=== PATIENT | male | born 1950 | race Caucasian/White ===

== ENCOUNTER 2020-08-18 12:11 | Emergency (ER) | payer MEDICARE, OTHER, SELFPAY ==
--- NOTE | ~2020-08-18 | XR_ITS ---
EXAMINATION: XR CHEST CLINICAL INFORMATION: Fever COMPARISON: 07/07/2015 TECHNIQUE: 2 views of the chest were obtained. FINDINGS: No dense focal consolidation, pleural effusion or pneumothorax. Streaky opacities at the lung bases most likely represent atelectasis. Heart size is normal. No acute osseous abnormality. XR/XR chest 2V IMPRESSION: Bibasilar atelectasis. No acute pulmonary process.
--- NOTE | ~2020-08-18 | CT_ITS ---
EXAMINATION: CT SOFT TISSUE NECK WITH CONTRAST CLINICAL INFORMATION: Sore throat. Difficulty swallowing. COMPARISON: None TECHNIQUE: Following the intravenous administration of 60 mL of Omnipaque 350 intravenous contrast, helical imaging was performed in the axial plane with generation of coronal and sagittal reformatted images. This CT examination was performed using dose optimization techniques as appropriate, variously including the following: *Automated exposure control *Adjustment of mA and/or kV according to patient size (this includes techniques or standardized protocols for targeted exams where dose is matched to indication/reason for exam; i.e. extremities or head) *Use of iterative reconstruction technique DLP: 978 mGy-cm FINDINGS: There is increased soft tissue, and infiltration of fat with loss of normal fat planes seen in the right side of the oropharynx extending into the parapharyngeal space. There is asymmetric enlargement of the right submandibular gland and small amount of surrounding fluid and inflammation of the surrounding fat. There is thickening of the platysma muscles and induration of the fat in the submental region extending into the upper anterior neck. There is diffuse right-sided cervical lymphadenopathy. There is periapical lucency seen in the right inferior alveolar ridge, breakthrough of the bone and small amount of air for example axial image 178 series 3 questionable for dental infection. It is uncertain whether source of infection is dental abscess, the right submandibular gland or the right oropharynx/parapharyngeal soft tissues. A focal fluid collection/abscess is not seen. The epiglottis is normal appearing. The larynx is normal appearing. The salivary glands are otherwise normal appearing. The thyroid gland is normal. Prevertebral soft tissues are normal. Vascular structures are normal. Visualized paranasal sinuses, mastoid air cells and middle ears are clear. Visualized intracranial structures are normal. The superior mediastinum is normal. The visualized lung apices are clear. There is degenerative spondylosis of the spine. There is soft tissue ossification posterior to the C4 spinous process in the nuchal ligament likely related to old soft tissue trauma. CT/CT soft tissue neck w con IMPRESSION: Severe cellulitis involving the right side of the oropharynx, right parapharyngeal space, right submandibular gland, and right side of the mandible extending into the submental region and upper anterior neck. It is uncertain whether origin of infection is in the right side of the oropharynx, dental abscess in the right inferior alveolar ridge or right submandibular gland. Clinical inspection of the mouth to exclude dental abscess as source evidence of likely infection is recommended. No focal fluid collection/drainable abscess is seen. Diffuse right-sided lymphadenopathy likely reactive.
[2020-08-18 12:19] VITALS: BP 136/84; PULSE 104; PULSE 99; RESP 18; TEMP 38.3; O2SAT 98; O2SAT 99; BMI 32.8
--- NOTE | 2020-08-18 12:50 | ED_ITS ---
HPI - General Adult General Chief complaint: General Medical Stated complaint: tooth Ache, Sore throat Time Seen by Provider: 08/18/20 12:36 Source: patient, EMS and RN notes reviewed Mode of arrival: EMS Limitations: no limitations History of Present Illness HPI narrative: 70-year-old male with a history of hypertension, asthma, GERD, hyperlipidemia, varicose veins, osteoarthritis, chronic polyps is here today for complaining of toothache and sore throat. Denies SOB with or without exertion, CP, syncope, presyncope. Denies nausea or vomiting, denies fatigue or malaise. Febrile, tachycardic. Patient lives in [facility], denies getting a COVID vaccine. Patient reports that he declined COVID vaccine because he is afraid of side effects. Does not recall if he was exposed to anybody with COVID 19. Onset (ago): day(s) Location: mouth Radiation: non-radiation Severity: moderate Quality: burning and constant (Worse with swallowing) Related Data Previous Rx's Medication Instructions Recorded acetaminophen 650 mg 650 mg PO Q8H PRN #60 tab 07/27/20 tablet,extended release multivitamin with folic acid 400 1 tab PO DAILY #30 tab 08/15/20 mcg tablet Allergies Allergy/AdvReac Type Severity Reaction Status Date / Time haloperidol [From HALDOL] Allergy Unknown BAD Verified 04/09/20 11:37 REACTION dizziness Review of Systems Review of Systems: Constitutional : No Weight loss, No Fever, No Chills, No Night Sweats, No Fatigue, No Malaise ENT/Mouth : No Hearing loss, No Ear Pain, No Nasal Congestion, No Sinus Pain, No Hoarseness, sore throat, No Rhinorrhea, Swallowing Difficulty Eyes: No Eye Pain, No Swelling, No Redness, No Foreign Body, No Discharge, No Vision Changes Cardiovascular : No Chest Pain, No SOB, No Dyspnea on Exertion, No Orthopnea, No Edema, No Palpitations Respiratory : No Cough, No Sputum, No Wheezing, No Smoke Exposure, No Dyspnea Gastrointestinal : No Nausea, No Vomiting, No Diarrhea, No Constipation, No abdominal Pain, No Hematochezia, No Melena Genitourinary : no irregular bleeding, No Dysuria, No Urinary Frequency, No Hematuria, No Urinary Incontinence, No Urgency, No Flank Pain, No Urinary Flow Changes, No Hesitancy Musculoskeletal : No joint pain, No Myalgias, No Joint Swelling Skin : No Skin Lesions, No rash Neuro : No Weakness, No Numbness, No Paresthesias, No Loss of Consciousness, No Dizziness, No Headache Psych : No Anxiety/Panic, No Depression, No SI/HI/AH/VH, No Social Issues, Heme/Lymph: No Bruising, No Bleeding,No Lymphadenopathy Endocrine : No Polyuria, No Polydipsia, No Temperature Intolerance Yes all other systems are reviewed and are negative [facility] Past Medical History Surgical History (Updated 04/09/20 @ 11:37 by CHANEL Narayanan) History of hernia repair Family History Family History (Updated 04/09/20 @ 11:38 by CHANEL Narayanan) Father CAD (coronary artery disease) Chronic mental illness Mother No problems noted. Brother No problems noted. Social History Social History Advance Directives: No Advance Directives Information Provided: No Physical Exam Vital Signs: Vital Signs: Last Vital Signs Temp 102.5 F H 08/18/20 15:39 Pulse 102 H 08/18/20 15:39 Resp 20 08/18/20 15:39 BP 134/77 08/18/20 15:39 Pulse Ox 96 08/18/20 15:39 Body Mass Index 32.8 Const: General: cooperative, healthy appearing and comfortable Nutritional Appearance: average body habitus Orientation/consciousness: patient oriented x3 Limitations: no limitations HENMT: Head: Yes normal to inspection Ears: hearing grossly normal bilat erally General nose exam: Normal external nose present Face and sinus: Yes normal facial exam Mouth: Normal oral and palatal mucosa present Throat: Yes uvula midline, Yes abnormal tonsil (Right tonsil grossly enlarged) and Yes posterior oropharynx abnormal Eyes: General: appearance normal, both eyes and all related structures Eyelids: Yes eyelids normal Conjunctivae: conjunctivae normal Sclerae: sclerae normal Pupils: Equal, round and reactive pupils present Neck: Neck: Yes normal visual inspection, Yes full ROM, Yes trachea midline, Yes supple and Yes lymphadenopathy Thyroid: Thyroid normal Lymphatic: no lymphadenopathy noted Chest: Chest palpation & inspection: normal inspection of the chest Resp: Effort & Inspection: normal respiratory effort and able to speak in complete sentences Auscultation: clear to auscultation bilaterally Cardio: Jugular venous distension: no JVD Rate: regular rate Rhythm: regular rhythm Heart sounds: S1 normal heart sound present, S2 normal heart sound present, no gallops, no murmurs and no rubs Peripheral pulses: Peripheral pulses 2+ throughout GI: Inspection: Yes normal to inspection and No distended Palpation (GI): No hepatosplenomegaly present and No Rebound tenderness present Percussion: Yes normal to percussion Auscultation: normal bowel sounds Back/Spine/Pelvis: Cervical Spine: cervical ROM normal and No cervical muscul ar tenderness Thoracic/Lumbar Spine: thoracic and lumbar spine normal to inspection Skin: General skin exam: no rashes or lesions noted, elasticity normal and turgor normal Neuro: General: patient oriented x3 Cranial nerves: Yes Equal, round and reactive pupils present Extrem: General: Yes normal to inspection, Yes full ROM and Yes capillary refill normal Psych: Appearance: grossly normal Mental Status: mental status grossly normal Speech and movement: Normal speech and movement present Affect: normal affect Attitude: cooperative Thought process: Normal thought process present Insight: Good insight present (Psych) Course Course Course Narrative: 70-year-old male here today from [facility]. No known exposure to COVID-19, with symptoms of sore throat and toothache. On exam patient's right side adenoid large no redness or inflammation or exudate. Patient is febrile temperature 101?. Heart rate 99. Will do COVID screen, rapid strep, blood cultures, lactic acid, CBC and BMP. Will ordered Zosyn and some fluids. Reevaluation(s) Reevaluation #1: Labs reviewed, negative for leukocytosis, lactic acid 1.1. Will order CT of the neck to rule out any obstructions as patient complains of difficulty of swallowing larger pieces of food. Denies having issues with soft food or fluids. Reevaluation #2: CT of the neck back. Patient has severe cellulitis involving the right side of the oropharynx, right parapharyngeal space, right submandibular gland and right side of the mandible extending into the submental region and the upper anterior neck. Call placed to [facility]. Spoke with on-callisthenics instructor, patient will need oral surgery 1st. There is no oral surgeon vocational services specialist at [facility]. Will call [facility] for transfer. Patient denies any SOB. Continue to monitor. Patient is aware that he will need to be transferred. He is agreeable to this plan of care. Reevaluation #3: Spoke with [facility]. Patient will be accepted there for possible oral surgery. Patient will be transferred to ED under care of Dr. Escobar. Patient denies any SOB, dyspnea. Patient is NPO. Additional Reevaluation(s): Per patient request cold his [facility] and inform him of transfer to [facility] for possible oral surgery. Spoke to family member as well and inform him of transfer. Patient is stable at this time will be transferred via ambulance to [facility] Emergency Department. Patient denies SOB, dyspnea, dysphagia. Continue NPO status. Medical Decision Making Lab Data Lab results reviewed: Yes I reviewed the patient's lab results. Result diagrams: 08/18/20 13:21 08/18/20 13:20 Labs: Lab Results 08/18/20 08/18/20 08/18/20 Range/Units 12:58 13:20 13:20 WBC (4.8-10.8) X10*3/uL RBC (4.60-5.80) X10*6/uL Hgb (14.0-18.0) g/dl Hct (42-52) % MCV (80-98) fL MCH (27.0-33.0) pg MCHC (31.0-36.0) g/dl RDW (11.0-16.0) % Plt Count (160-400) X10*3/uL MPV (9.4-12.4) fL Immature Gran % (Auto) (0.0-0.4) % Neut % (Auto) (45-73) % Lymph % (Auto) (20-40) % [place] % (Auto) (2-11) % Eos % (Auto) (0-4) % Baso % (Auto) (0-2) % Lymph # (Auto) (1.2-4.9) X10*3/uL [place] # (Auto) (0.1-1.2) X10*3/uL Eos # (Auto) (0.0-0.4) X10*3/uL Baso # (Auto) (0.0-0.2) X10*3/uL Abs Immat Gran (auto) (0.00-0.03) X10*3/uL Absolute Neuts (auto) (2.0-8.3) X10*3/uL Absolute Nucleated RBC (0.0-0.012) X10*3/uL Nucleated RBC % (auto) (0.0-0.2) /100WBC Sodium 134 L (135-145) mmol/L Potassium 4.4 (3.3-5.1) mmol/L Chloride 95 L (96-108) mmol/L Carbon Dioxide 28 (22-29) mmol/L Anion Gap 15 (12-20) BUN 12 (9-16) mg/dL Creatinine 1.03 (0.5-1.4) mg/dL Estim Creat Clear Calc 84.2 Estimated GFR > 60 Random Glucose 113 (60-115) mg/dL Lactic Acid 1.1 (0.5-2.0) mmol/L Calcium 9.6 (8.4-10.2) mg/dL Urine Color Urine Appearance Urine pH (5.0-8.0) Ur Specific Victor (1.005-1.025) Urine Protein (NEG-TRACE) MG/DL Urine Glucose (UA) (NEG) MG/DL Urine Ketones (NEG) MG/DL Urine Blood (NEG) Urine Nitrite (NEG) Ur Leukocyte Esterase (NEG) Urine RBC (0) /HPF Urine WBC (0-4) /HPF Ur Squamous Epith Cells /LPF Urine Bacteria /LPF Coronavirus (PCR) NEGATIVE (Negative) Influenza Type A (PCR) NEGATIVE (Negative) Influenza Type B (PCR) NEGATIVE (Negative) RSV RNA Qual (PCR) NEGATIVE (Negative) 08/18/20 08/18/20 Range/Units 13:21 15:09 WBC 10.3 (4.8-10.8) X10*3/uL RBC 5.55 (4.60-5.80) X10*6/uL Hgb 16.0 (14.0-18.0) g/dl Hct 47.7 (42-52) % MCV 85.9 (80-98) fL MCH 28.8 (27.0-33.0) pg MCHC 33.5 (31.0-36.0) g/dl RDW 12.3 (11.0-16.0) % Plt Count 257 (160-400) X10*3/uL MPV 9.1 L (9.4-12.4) fL Immature Gran % (Auto) 0.3 (0.0-0.4) % Neut % (Auto) 75.7 H (45-73) % Lymph % (Auto) 11.3 L (20-40) % [place] % (Auto) 12.3 H (2-11) % Eos % (Auto) 0.1 (0-4) % Baso % (Auto) 0.3 (0-2) % Lymph # (Auto) 1.2 (1.2-4.9) X10*3/uL [place] # (Auto) 1.3 H (0.1-1.2) X10*3/uL Eos # (Auto) 0.0 (0.0-0.4) X10*3/uL Baso # (Auto) 0.0 (0.0-0.2) X10*3/uL Abs Immat Gran (auto) 0.03 (0.00-0.03) X10*3/uL Absolute Neuts (auto) 7.8 (2.0-8.3) X10*3/uL Absolute Nucleated RBC 0.000 (0.0-0.012) X10*3/uL Nucleated RBC % (auto) 0.0 (0.0-0.2) /100WBC Sodium (135-145) mmol/L Potassium (3.3-5.1) mmol/L Chloride (96-108) mmol/L Carbon Dioxide (22-29) mmol/L Anion Gap (12-20) BUN (9-16) mg/dL Creatinine (0.5-1.4) mg/dL Estim Creat Clear Calc Estimated GFR Random Glucose (60-115) mg/dL Lactic Acid (0.5-2.0) mmol/L Calcium (8.4-10.2) mg/dL Urine Color YELLOW Urine Appearance CLEAR Urine pH 6.0 (5.0-8.0) Ur Specific Victor <= 1.005 (1.005-1.025) Urine Protein NEG (NEG-TRACE) MG/DL Urine Glucose (UA) NEG (NEG) MG/DL Urine Ketones NEG (NEG) MG/DL Urine Blood 2+ H (NEG) Urine Nitrite NEG (NEG) Ur Leukocyte Esterase TRACE H (NEG) Urine RBC 10-14 H (0) /HPF Urine WBC 0-2 (0-4) /HPF Ur Squamous Epith Cells TRACE /LPF Urine Bacteria TRACE /LPF Coronavirus (PCR) (Negative) Influenza Type A (PCR) (Negative) Influenza Type B (PCR) (Negative) RSV RNA Qual (PCR) (Negative) Imaging Data Chest x-ray: Radiologist's impression: FINDINGS: No dense focal consolidation, pleural effusion or pneumothorax. Streaky opacities at the lung bases most likely represent atelectasis. Heart size is normal. No acute osseous abnormality. XR/XR chest 2V IMPRESSION: Bibasilar atelectasis. No acute pulmonary process. CT scan of the neck: Radiologist's impression: FINDINGS: There is increased soft tissue, and infiltration of fat with loss of normal fat planes seen in the right side of the oropharynx extending into the parapharyngeal space. There is asymmetric enlargement of the right submandibular gland and small amount of surrounding fluid and inflammation of the surrounding fat. There is thickening of the platysma muscles and induration of the fat in the submental region extending into the upper anterior neck. There is diffuse right-sided cervical lymphadenopathy. There is periapical lucency seen in the right inferior alveolar ridge, breakthrough of the bone and small amount of air for example axial image 178 series 3 questionable for dental infection. It is uncertain whether source of infection is dental abscess, the right submandibular gland or the right oropharynx/parapharyngeal soft tissues. A focal fluid collection/abscess is not seen. The epiglottis is normal appearing. The larynx is normal appearing. The salivary glands are otherwise normal appearing. The thyroid gland is normal. Prevertebral soft tissues are normal. Vascular structures are normal. Visualized paranasal sinuses, mastoid air cells and middle ears are clear. Visualized intracranial structures are normal. The superior mediastinum is normal. The visualized lung apices are clear. There is degenerative spondylosis of the spine. There is soft tissue ossification posterior to the C4 spinous process in the nuchal ligament likely related to old soft tissue trauma. CT/CT soft tissue neck w con IMPRESSION: Severe cellulitis involving the right side of the oropharynx, right parapharyngeal space, right submandibular gland, and right side of the mandible extending into the submental region and upper anterior neck. It is uncertain whether origin of infection is in the right side of the oropharynx, dental abscess in the right inferior alveolar ridge or right submandibular gland. Clinical inspection of the mouth to exclude dental abscess as source evidence of likely infection is recommended. No focal fluid collection/drainable abscess is seen. Diffuse right-sided lymphadenopathy likely reactive. Discharge Plan Discharge Patient Disposition: [facility] Transfer Details: [facility] Prescriptions: No Action acetaminophen [Tylenol 8 Hour] 650 mg tablet extended release 650 mg PO Q8H PRN (Reason: fever or pain) Qty: 60 RF: 0 multivitamin with folic acid [Tab-A-Javi] 400 mcg tablet 1 tab PO DAILY Qty: 30 RF: 3
[2020-08-18 13:26] LABS: MANUAL DIFF FLAG NO
[2020-08-18 13:28] LABS: Basophils Percent Auto 0.3 % (0-2); Eosinophils Percent Auto 0.1 % (0-4); Hematocrit 47.7 % (42-52); Imm Gran Abs Auto 0.03 X10*3/uL (0.00-0.03); Imm Gran Pct Auto 0.3 % (0.0-0.4); Lymphocytes Absolute Auto 1.2 X10*3/uL (1.2-4.9); Lymphocytes Percent Auto 11.3 % (20-40); Mean Corpuscular HGB Conc 33.5 g/dl (31.0-36.0); Mean Corpuscular Hemoglobin 28.8 pg (27.0-33.0); Mean Corpuscular Volume 85.9 fL (80-98); Mean Platelet Volume 9.1 fL (9.4-12.4); Monocytes Absolute Auto 1.3 X10*3/uL (0.1-1.2); Monocytes Percent Auto 12.3 % (2-11); Neutrophils Absolute Auto 7.8 X10*3/uL (2.0-8.3); Neutrophils Percent Auto 75.7 % (45-73); Platelet Count 257 X10*3/uL (160-400); Red Blood Count 5.55 X10*6/uL (4.60-5.80); Red Cell Distribution Width 12.3 % (11.0-16.0); White Blood Count 10.3 X10*3/uL (4.8-10.8)
[2020-08-18] MEDS: Piperacillin Sodium/Tazobactam 3.375 GM in 0.9 % Sodium Chloride 50 ML IV (13:33)
[2020-08-18] MEDS: 0.9 % Sodium Chloride 500 ML IV (13:34)
[2020-08-18 13:46] LABS: Influenza A PCR NEGATIVE (Negative); Influenza B PCR NEGATIVE (Negative); Resp Syncy Virus RNA Qual PCR NEGATIVE (Negative); SARS COV2 PCR INHOUSE NEGATIVE (Negative)
[2020-08-18 13:52] LABS: Lactic Acid 1.1 mmol/L (0.5-2.0)
[2020-08-18 13:55] LABS: Anion Gap 15 (12-20); Blood Urea Nitrogen 12 mg/dL (9-16); Calcium 9.6 mg/dL (8.4-10.2); Carbon Dioxide 28 mmol/L (22-29); Chloride 95 mmol/L (96-108); Creatinine Clr Calc Pharmacy 84.2; Estimated Glomerular Filt Rate > 60; Glucose Random 113 mg/dL (60-115); Potassium 4.4 mmol/L (3.3-5.1); Sodium 134 mmol/L (135-145)
[2020-08-18 13:59] VITALS: BP 122/77; PULSE 97; RESP 16; O2SAT 97
[2020-08-18 14:00] VITALS: BP 122/77; PULSE 97; RESP 16; O2SAT 94
[2020-08-18] MEDS: 0.9 % Sodium Chloride 1,000 ML 999 ML IV (14:42)
[2020-08-18] MEDS: iohexoL 350 MG/ML 100 ML INFUS..BTL IV (14:48)
[2020-08-18 15:17] LABS: Glucose Urine UA NEG (NEG); Leukocyte Esterase Urine TRACE (NEG); Nitrite Urine NEG (NEG); Specific Gravity - Urine <= 1.005 (1.005-1.025); UACC Culture Trigger YES; Urine Blood 2+ (NEG); Urine Ketones NEG (NEG); Urine Protein NEG (NEG-TRACE)
[2020-08-18 15:19] LABS: Appearance Urine CLEAR; Color Urine YELLOW
[2020-08-18 15:29] LABS: Bacteria Urine TRACE /LPF; Squamous Epithelial Cell Urine TRACE /LPF; WBC Urine 0-2 /HPF (0-4)
[2020-08-18 15:39] VITALS: BP 134/77; PULSE 102; RESP 20; TEMP 39.2; O2SAT 96
== END 2020-08-18 18:00 | disposition short-term general hospital (02) ==
PROVIDERS: Nurse Practitioner Family; Emergency Provider Emergency Medicine; PCP Internal Medicine
DX: L03.221 Cellulitis of neck (principal); J02.9 Acute pharyngitis, unspecified; I10 Essential (primary) hypertension; K08.89 Other specified disorders of teeth and supporting structures; J45.909 Unspecified asthma, uncomplicated; Z20.822 Contact with and (suspected) exposure to COVID-19; Z79.899 Other long term (current) drug therapy
CPT/HCPCS: 0241U; 36415; 70491; 71046; 80048; 81001; 81003; 83605; 85025; 87040; 87071; 87086; 87880; 96360; 96361; 99284; J2543; Q9967

== ENCOUNTER 2021-06-06 10:25 | Outpatient (REF) | payer MEDICARE, OTHER, SELFPAY ==
[2021-06-06 12:10] LABS: Appearance Urine CLEAR; Color Urine YELLOW; Glucose Urine UA NEG (NEG); Leukocyte Esterase Urine 2+ (NEG); Nitrite Urine NEG (NEG); Urine Blood NEG (NEG); Urine Ketones NEG (NEG); Urine Protein NEG (NEG-TRACE)
[2021-06-06 12:15] LABS: Alanine Aminotransferase 16 U/L (0-40); Alkaline Phosphatase 55 U/L (39-117); Anion Gap 12 (12-20); Aspartate Amino Transferase 15 U/L (5-37); Bilirubin Direct 0.3 mg/dL (0.0-0.5); Bilirubin Total 0.8 mg/dL (0.0-1.0); Blood Urea Nitrogen 22 mg/dL (9-16); Calcium 9.6 mg/dL (8.4-10.2); Carbon Dioxide 26 mmol/L (22-29); Chloride 106 mmol/L (96-108); Cholesterol 196 mg/dL; Estimated Glomerular Filt Rate > 60; Glucose Random 95 mg/dL (60-115); HDL Cholesterol 42 mg/dL; LDL Cholesterol Calculated 126 mg/dl; Potassium 4.4 mmol/L (3.3-5.1); Sodium 140 mmol/L (135-145); Total Protein 7.1 g/dL (6.5-8.0); Triglycerides 140 mg/dL
[2021-06-06 13:04] LABS: Bacteria Urine 1+ /LPF; RBC Urine 0-2 /HPF (0); Squamous Epithelial Cell Urine 1+ /LPF
[2021-06-11 11:51] LABS: Vitamin D 25-OH, D2 <4 ng/mL; Vitamin D 25-OH, D3 20 ng/mL; Vitamin D 25-OH, Total 20 ng/mL (30-100)
== END 2021-06-06 10:26 | disposition home or self-care (01) ==
LOC: HO.LAB 10:25
PROVIDERS: Visit Provider Internal Medicine
DX: F20.9 Schizophrenia, unspecified (principal); I10 Essential (primary) hypertension
CPT/HCPCS: 36415; 80048; 80061; 80076; 81001; 81003; 82306; 84443

== ENCOUNTER 2021-11-03 19:31 | Emergency (ER) | payer MEDICARE, OTHER, SELFPAY ==
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
[2021-11-03 20:08] VITALS: BP 149/83; PULSE 80; RESP 18; TEMP 36.2; O2SAT 99; BMI 28.9
[2021-11-03 20:15] VITALS: BP 190/100; O2SAT 97
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
--- NOTE | 2021-11-03 20:59 | PC.NURSE ---
patient a&x3, denies pain/discomfort, pt went to ct scan, awaiting results, will continue to monitor.
== END 2021-11-03 21:52 | disposition home or self-care (01) ==
PROVIDERS: Emergency Provider Internal Medicine
DX: S09.90XA Unspecified injury of head, initial encounter (principal); M54.2 Cervicalgia; G44.309 Post-traumatic headache, unspecified, not intractable; Y04.8XXA Assault by other bodily force, initial encounter; Y93.9 Activity, unspecified; Y92.009 Unspecified place in unspecified non-institutional (private) residence as the place of occurrence of the external cause; Y99.9 Unspecified external cause status; Z87.891 Personal history of nicotine dependence
CPT/HCPCS: 70450; 72125; 99284

== ENCOUNTER 2022-09-04 10:53 | Outpatient (REF) | payer MEDICARE, OTHER, SELFPAY ==
[2022-09-04 11:15] LABS: MANUAL DIFF FLAG NO
[2022-09-04 12:17] LABS: Appearance Urine Clear; Color Urine Yellow; Glucose Urine UA Negative (Negative); Leukocyte Esterase Urine Large (3+) (Negative); Nitrite Urine Negative (Negative); PH 5.5 (5.0-9.0); UMIC TRIGGER UA YES; Urine Blood Negative (Negative); Urine Ketones Negative (Negative); Urine Protein Negative (Neg-Trace)
[2022-09-04 12:26] LABS: Basophils Absolute Auto 0.1 X10*3/uL (0.0-0.2); Basophils Percent Auto 1.1 % (0-2); Eosinophils Absolute Auto 0.1 X10*3/uL (0.0-0.4); Eosinophils Percent Auto 1.5 % (0-4); Hematocrit 44.3 % (42.0-52.0); Hemoglobin 14.5 g/dl (14.0-18.0); Lymphocytes Absolute Auto 1.7 X10*3/uL (1.2-4.9); Lymphocytes Percent Auto 31.5 % (20-40); Mean Corpuscular HGB Conc 32.7 g/dl (31.0-36.0); Mean Corpuscular Hemoglobin 28.7 pg (27.0-33.0); Mean Corpuscular Volume 87.5 fL (80.0-98.0); Mean Platelet Volume 9.8 fL (9.4-12.4); Monocytes Absolute Auto 0.5 X10*3/uL (0.1-1.2); Monocytes Percent Auto 9.5 % (2-11); Neutrophils Absolute Auto 3.1 x10*3/uL (2.0-8.3); Neutrophils Percent Auto 56.4 % (45-73); Platelet Count 263 X10*3/uL (160-400); Red Blood Count 5.06 X10*6/uL (4.60-5.80); Red Cell Distribution Width 13.5 % (11.0-16.0); White Blood Count 5.5 X10*3/uL (4.8-10.8)
[2022-09-04 12:30] LABS: Bacteria Urine None Seen (None Seen); Hyaline Casts Urine 0-2 /LPF (0-2); RBC Urine 0-2 /HPF (0-2); Squamous Epithelial Cell Urine 0-2 /HPF (0-2); WBC Urine 21-50 /HPF (0-5)
[2022-09-04 12:31] LABS: Estimated Average Glucose 94 mg/dL; Hemoglobin A1c % 4.9 %
[2022-09-04 12:44] LABS: Alanine Aminotransferase 14 U/L (0-40); Albumin Level 4.1 g/dL (3.5-5.0); Alkaline Phosphatase 48 U/L (39-117); Anion Gap 13 (12-20); Aspartate Amino Transferase 13 U/L (5-37); Bilirubin Total 1.7 mg/dL (0.0-1.0); Blood Urea Nitrogen 10 mg/dL (9-16); Calcium 9.9 mg/dL (8.4-10.2); Carbon Dioxide 28 mmol/L (22-29); Chloride 107 mmol/L (96-108); Cholesterol 191 mg/dL; Estimated Glomerular Filt Rate > 60; Glucose Fasting 85 mg/dL (60-99); Glucose Random 85 mg/dL (60-115); HDL Cholesterol 58 mg/dL; LDL Cholesterol Calculated 121 mg/dl; Sodium 143 mmol/L (135-145); Triglycerides 61 mg/dL
[2022-09-04 12:59] LABS: Alanine Aminotransferase 14 U/L (0-40); Alkaline Phosphatase 47 U/L (39-117); Anion Gap 14 (12-20); Aspartate Amino Transferase 13 U/L (5-37); Bilirubin Direct 0.4 mg/dL (0.0-0.5); Bilirubin Total 1.7 mg/dL (0.0-1.0); Blood Urea Nitrogen 10 mg/dL (9-16); Calcium 9.8 mg/dL (8.4-10.2); Carbon Dioxide 28 mmol/L (22-29); Chloride 107 mmol/L (96-108); Cholesterol 192 mg/dL; Estimated Glomerular Filt Rate > 60; Glucose Random 85 mg/dL (60-115); HDL Cholesterol 57 mg/dL; LDL Cholesterol Calculated 123 mg/dl; Potassium 4.9 mmol/L (3.3-5.1); Sodium 144 mmol/L (135-145); Total Protein 6.9 g/dL (6.5-8.0); Triglycerides 60 mg/dL
[2022-09-04 13:15] LABS: Thyroid Stimulating Hormone 1.42 uIU/mL (0.32-4.0)
== END 2022-09-04 10:54 | disposition home or self-care (01) ==
LOC: HO.LAB 10:53
PROVIDERS: PCP Internal Medicine; Referring Provider Nurse Practitioner Psychiatric/Mental Health; Visit Provider Internal Medicine
DX: F20.9 Schizophrenia, unspecified (principal); I10 Essential (primary) hypertension; Z51.81 Encounter for therapeutic drug level monitoring; Z79.899 Other long term (current) drug therapy
CPT/HCPCS: 36415; 80048; 80053; 80061; 80076; 81001; 81003; 82947; 83036; 84443; 85025

== ENCOUNTER 2023-02-11 10:54 | Outpatient (AMB) | payer MEDICARE, SELFPAY ==
[2023-02-11 10:55] VITALS: BP 106/78; PULSE 76; O2SAT 98; BMI 25.7
--- NOTE | 2023-02-11 10:55 | AM.OFFVISMDC ---
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 Patient of Dr. Hurst. Today we discussed patient's need for colon cancer screening, pneumonia vaccine, tetanus vaccine, and flu vaccine, patient has declined these. Also discussed patient's need for prostate cancer screening. Hollis of care was reviewed with the patient and he was provided with a screening schedule. End of life planning was discussed with the patient and he was provided with healthcare proxy and MOLST forms. [facility] Medical History Right shoulder strain Essential hypertension Schizophrenia, unspecified Surgical History History of colonoscopy History of tooth extraction History of hernia repair Family History Father CAD (coronary artery disease) Chronic mental illness Mental health disorder Mother No problems noted. Brother No problems noted. Social History Housing: House (usp) Alcohol intake: never Patient Tobacco Use Status: Former Tobacco user Quit Date: 35 years ago e-Cigarette/Vaping Use: Never Used Second Hand Smoke Exposure: No service: No Current occupational status: disabled Cognitive needs: No Hearing needs: No Vision needs: Yes (Glasses) Questionnaire Medicare Wellness Checkup [age] What gender do you identify with?: male During the past 4 weeks, how much have you been bothered by emotional problems such as feeling anxious, depressed, irritable, sad or downhearted, and blue?: quite a bit During the past 4 weeks, has your physical & emotional health limited your social activities with family, friends, neighbors, or groups?: moderately During the past 4 weeks, how much bodily pain have you generally had?: moderate pain During the past 4 weeks, was someone available to help you if you needed & wanted help?: yes, as much as I wanted During the past 4 weeks, what was the hardest physical activity you could do for at least 2 minutes?: light Can you get to places out of walking distance without help? (For eg., can you travel alone on buses, taxis or drive your car?): No Can you go shopping for groceries or clothes without someone's help?: Yes Can you prepare your own meals?: Yes Can you do your housework without help?: No Because of any health problems, do you need the help of another person with your personal care needs such as eating, bathing, dressing or getting around the house?: No Can you handle your own money without help?: No During the past 4 weeks, how would you rate your health in general?: very good During the past 4 weeks how have things been going for you?: good & bad parts about equal Are you having difficulties driving your car?: no Do you always fasten your seat belt when you are in a car?: yes, usually During past 4 weeks, have you been bothered by the following: never: Sexual problems?, Teeth or denture problems? and Problems using the telephone?, seldom: Trouble eating well? and often: Falling or dizzy when standing up and Tiredness or fatigue? Have you fallen 2 or more times in the past year?: No Are you afraid of falling?: Yes Are you a smoker?: no During the past 4 weeks, how many drinks of wine, beer, or other alcoholic beverages did you have?: no alcohol at all Do you exercise for about 20 minutes 3 or more times a week?: yes, most of the time Have you been given information to help with the following?: yes: Hazards in your house that might hurt you? and yes: Keeping track of your medications? How often do you have trouble taking medicines the way you have been told to take them?: I always take medicine as prescribed How confident are you that you can control & manage most of your health problems?: somewhat confident What is your race?: White Mini Mental State Exam (MMSE) Orientation What is the (year) (season) (date) (day) (month)?: year, season, date, day and month Score Score: 5 Activity of Daily Living Bathing - sponge bath, tub bath or shower: receives no assistance (gets in/out by self, if usual bathing means Dressing - getting clothes from closets & drawers, including inner/outer garments & fasteners.: gets clothes & gets completely dressed without help Toileting - going to the 'toilet room' for urine/bowel elimination & cleaning self/arranging clothes: goes to toilet room, cleans self, arranges clothes without help Transfer: moves in & out of bed and chair without help (may use support object) Continence: controls urination/bowel movements completely by self Feeding: feeds self without help Total Score: 0 Information obtained from: patient Using telephone: independent Traveling: dependent Shopping: needs assistance Preparing meals: needs assistance Housework: dependent Taking medicine: dependent Managing money: independent PHQ-9 Over the last 2 weeks, how often have you been bothered by any of the following problems? 1. Little interest or pleasure in doing things: several days 2. Feeling down, depressed, or hopeless: several days 3. Trouble falling or staying asleep, or sleeping too much: several days 4. Feeling tired or having little energy: several days 5. Poor appetite or overeating: not at all 6. Feeling bad about yourself - or that you are a failure or have let yourself or your family down: several days 7. Trouble concentrating on things, such as reading the newspaper or watching television: several days 8. Moving or speaking so slowly that other people could have noticed. Or the opposite - being so fidgety or restless that you have been moving around a lot more than usual: not at all 9. Thoughts that you would be better off or of hurting yourself in some way: not at all Total score: 6 Depression Screening Interpretation: Negative Depression Screening Done: Yes 49627 - PHQ-9 Billing: Yes Source: Developed by Drs. Gómez Molina, Sarai Sutton, Edwin Fermin and colleagues, with an educational sadie from [employer]. Physical Exam Vital Signs: Last Vital Signs Pulse 76 02/11/23 10:55 BP 106/78 02/11/23 10:55 Pulse Ox 98 02/11/23 10:55 Oxygen Delivery Method Room Air 02/11/23 10:55 BMI result Body Mass Index 25.7 Const General: cooperative and no acute distress Orientation/consciousness: patient oriented x3 HEENT Other: Whisper test: pass Neuro Other: Balance: Normal Get up and walk: able to Romberg: negative Tandem gait: unable to General: patient oriented x3 Assessment & Plan Assessment & Plan (1) Adult general medical exam: Code(s): Z00.00 - Encounter for general adult medical examination without abnormal findings (2) Screening for prostate cancer: Code(s): Z12.5 - Encounter for screening for malignant neoplasm of prostate (3) Essential hypertension: Code(s): I10 - Essential (primary) hypertension Plan: Continue current treatment. Reinforced low-sodium diet and exercise as tolerated. (4) Schizophrenia, unspecified: Code(s): F20.9 - Schizophrenia, unspecified Plan: Continue to follow-up with psychiatrist as scheduled at [facility]. (5) Colonoscopy refused: Code(s): Z53.20 - Procedure and treatment not carried out because of patient's decision for unspecified reasons Orders: Orders Prostate Specific Antigen Today Z12.5 - Encounter for screening for malignant neoplasm of prostate Quality Reporting (2019) Depression/Bipolar (159/160/161/177) PHQ-9: Total score: 6 Coding Level of Care Code Medicare Subsequent (G0439) Diagnoses Adult general medical exam Z00.00 Screening for prostate cancer Z12.5 Essential hypertension I10 Schizophrenia, unspecified F20.9 Colonoscopy refused Z53.20 CPT Codes Advance Care Planning - Time spent: 1-15 minutes, not on file ([id number]) Advance Care Planning Date of discussion: 02/11/23 Who was present: pt and psych arnp Forms completed: None Time spent: 1-15 minutes, not on file Actual minutes spent: 3 Did not discuss due to Cultural/Spiritual beliefs: No
== END 2023-02-11 11:27 | disposition home or self-care (01) ==
PROVIDERS: Visit Provider Nurse Practitioner Family
DX: Z00.00 Encounter for general adult medical examination without abnormal findings (principal); Z12.5 Encounter for screening for malignant neoplasm of prostate; I10 Essential (primary) hypertension; F20.9 Schizophrenia, unspecified; Z53.20 Procedure and treatment not carried out because of patient's decision for unspecified reasons
CPT/HCPCS: 1124F; G0439

== ENCOUNTER 2023-08-13 09:46 | Outpatient (AMB) | payer MEDICARE, MEDICAID, SELFPAY ==
--- NOTE | 2023-08-13 10:15 | A.OFFPC_ITS ---
Vital Signs 08/13/23 10:38 Height 5 ft 11 in Weight 182 lb BMI 25.4 BP 110/70 Blood Pressure Location Lt brachial Position Sitting Pulse 60 Pulse Source Pulse Oximeter Pulse Oximetry (%) 97 Oxygen Delivery Method Room Air Intake Visit Reasons: HTN Intake Note: Patient is here to follow up on HTN and medication refill. 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 Required: No Stained Glass Window Designer: Present Accompanied by: STAFF Allergies haloperidol [From HALDOL] Allergy (Unknown, Verified 08/13/23 11:10) BAD REACTION dizziness Medication List - Last Reconciled 08/13/23 by Jameson Hurst MD acetaminophen ER (Tylenol 8 Hour) 650 mg PO Q8H PRN amlodipine 5 mg PO DAILY benztropine 2 mg PO BID cholecalciferol (vitamin D3) 25 mcg PO DAILY fluphenazine decanoate mg IM lorazepam 0.5 mg PO BID PRN multivitamin with folic acid 400 mcg (Tab-A-Javi) 1 tab PO DAILY propranolol 20 mg PO TID Tobacco use date assessed: 08/13/23 Fall risk assessment: 1 Fall in past year Last assessed Fall Risk: 08/13/23 Dental Screening Dental Screen Date: 08/13/23 Did you have a dental visit in the last 12 months?: No Did you have a dental problem in the last 6 months where you did not have access to dental care?: No Was dental information given to patient?: No HPI HTN HPI Details 73-year-old male presents to the office to discuss his medical condition. He is accompanied by an attendant from his assisted. Patient gives history of schizophrenia and hypertension. He is at baseline state of health. Able to function at his level. He needs assistance with medications. Lives in a assisted. [facility] Medical History Right shoulder strain Essential hypertension Schizophrenia, unspecified Surgical History History of colonoscopy History of tooth extraction History of hernia repair Family History Father CAD (coronary artery disease) Chronic mental illness Mental health disorder Mother No problems noted. Brother No problems noted. Social History Alcohol intake: never Patient Tobacco Use Status: Former Tobacco user Quit Date: 35 years ago e-Cigarette/Vaping Use: Never Used Second Hand Smoke Exposure: No service: No Current occupational status: disabled Cognitive needs: No Hearing needs: No Vision needs: Yes (Glasses) Questionnaire PHQ-9 Over the last 2 weeks, how often have you been bothered by any of the following problems? 1. Little interest or pleasure in doing things: not at all 2. Feeling down, depressed, or hopeless: not at all 3. Trouble falling or staying asleep, or sleeping too much: not at all 4. Feeling tired or having little energy: not at all 5. Poor appetite or overeating: not at all 6. Feeling bad about yourself - or that you are a failure or have let yourself or your family down: not at all 7. Trouble concentrating on things, such as reading the newspaper or watching television: not at all 8. Moving or speaking so slowly that other people could have noticed. Or the opposite - being so fidgety or restless that you have been moving around a lot more than usual: not at all 9. Thoughts that you would be better off or of hurting yourself in some way: not at all Total score: 0 Depression Screening Interpretation: Negative Depression Screening Done: Yes Source: Developed by Drs. Gómez Molina, Sarai Sutton, Edwin Fermin and colleagues, with an educational sadie from [employer]. Thrive Questionnaire Date Thrive assessed: 08/13/23 I am a: Patient What is your living situation today?: I have a steady place to live Within the past 12 months, did the food you bought not last and you didn't have the money to get more?: Never true Within the past 12 months, did you worry whether your food would run out before you got money to buy more?: Never true Do you have trouble paying for medicines?: No Do you have trouble getting transportation to medical appointments?: No Do you have trouble paying your heating and electricity bill?: No Do you have trouble taking care of your child, family member or friend?: No Do you have trouble with day-to-day activities such as bathing, preparing meals, shopping, managing finances, etc.?: No Are you currently unemployed and looking for a job?: No Are you interested in more education?: No Currently or been in a relationship where the following occur: no concerns reported THRIVE Score: 0 AUDIT C Alcohol Use Questionnaire (AUDIT-C) 1. How often do you have a drink containing alcohol?: Never Total Score: 0 INOCENCIO-7 AMB Questionnaire INOCENCIO-7 Date INOCENCIO - 7 assessed: 08/13/23 Feeling nervous, anxious, or on edge: 1 = Several days Not being able to stop or control worryin = Not at all Worrying too much about different things: 0 = Not at all Trouble relaxin = Several days Being so restless that it is hard to sit still: 3 = Nearly every day Becoming easily annoyed or irritable: 1 = Several days Feeling afraid as if something awful might happen: 1 = Several days Total INOCENCIO-7 score (0-4 normal; 5-9 mild; 10-14 moderate; 15-21 severe): 7 Source: Developed by Drs. Gómez Molina, Sarai Sutton, Edwin Fermin and colleagues, with an educational sadie from [employer]. Physical exam (Primary Care) Vital Signs: Last Vital Signs Pulse 60 08/13/23 10:38 BP 110/70 08/13/23 10:38 Pulse Ox 97 08/13/23 10:38 Oxygen Delivery Method Room Air 08/13/23 10:38 BMI result Body Mass Index 25.4 Tobacco/Smoking Status: Tobacco use Status Tobacco use date assessed 08/13/23 08/13/23 10:46 Patient Tobacco Use Status Former Tobacco user 08/13/23 10:46 e-Cigarette/Vaping Use Never Used 08/13/23 10:17 PHQ-9: PHQ-9 Score PHQ-9: Total score 0 08/13/23 10:46 Depression Screening Interpretation: Negative Thrive Assessment: Date of Thrive Assessment Date Thrive assessed 08/13/23 08/13/23 10:46 Currently or been in a relationship where the following occur: no concerns r eported Const General: cooperative and healthy appearing Nutritional Appearance: well nourished Orientation/consciousness: patient oriented x3 Limitations: no limitations HENMT Head: Yes normal to inspection Eyes General: appearance normal, both eyes and all related structures Neck Neck: Yes normal visual inspection Chest Chest palpation & inspection: normal palpation of entire chest wall Resp Effort & Inspection: normal respiratory effort Neuro General: patient oriented x3 Assessment and Plan Assessment & Plan (1) Schizophrenia, unspecified: Code(s): F20.9 - Schizophrenia, unspecified Plan: Condition is stable. Continue current meds. (2) Essential hypertension: Code(s): I10 - Essential (primary) hypertension Plan: Blood pressure is in range. Blood work has ordered. Orders: Orders Basic Metabolic Panel Today F20.9 - Schizophrenia, unspecified, I10 - Essential (primary) hypertension Complete Blood Count no Diff Today F20.9 - Schizophrenia, unspecified, I10 - Essential (primary) hypertension Liver Panel Today F20.9 - Schizophrenia, unspecified, I10 - Essential (primary) hypertension Lipid Panel Today F20.9 - Schizophrenia, unspecified, I10 - Essential (primary) hypertension Thyroid Stimulating Hormone Today F20.9 - Schizophrenia, unspecified, I10 - Essential (primary) hypertension Medications: Refilled cholecalciferol (vitamin D3) 25 mcg PO DAILY 90 caps 1RF propranolol 20 mg PO TID 270 tabs 0RF amlodipine 5 mg PO DAILY 90 tabs 1RF acetaminophen ER (Tylenol 8 Hour) 650 mg PO Q8H PRN 60 tabs 0RF fever or pain Coding Level of Care Code Est Pt Level 3 (09203) Diagnoses Schizophrenia, unspecified F20.9 Essential hypertension I10
[2023-08-13 10:38] VITALS: BP 110/70; PULSE 60; O2SAT 97; BMI 25.4
== END 2023-08-13 11:15 | disposition home or self-care (01) ==
PROVIDERS: PCP Internal Medicine; Visit Provider Internal Medicine
DX: F20.9 Schizophrenia, unspecified (principal); I10 Essential (primary) hypertension
CPT/HCPCS: 99213

== ENCOUNTER 2023-08-13 11:24 | Outpatient (REF) | payer MEDICARE, OTHER, SELFPAY ==
[2023-08-13 12:36] LABS: Hematocrit 47.4 % (42.0-52.0); Hemoglobin 15.5 g/dl (14.0-18.0); Mean Corpuscular HGB Conc 32.7 g/dl (31.0-36.0); Mean Corpuscular Hemoglobin 28.9 pg (27.0-33.0); Mean Corpuscular Volume 88.3 fL (80.0-98.0); Mean Platelet Volume 9.9 fL (9.4-12.4); Platelet Count 247 X10*3/uL (160-400); Red Blood Count 5.37 X10*6/uL (4.60-5.80); White Blood Count 6.2 X10*3/uL (4.8-10.8)
[2023-08-13 14:11] LABS: Alanine Aminotransferase 16 U/L (0-40); Alkaline Phosphatase 50 U/L (39-117); Anion Gap 6 (12-20); Aspartate Amino Transferase 12 U/L (5-37); Bilirubin Direct 0.2 mg/dL (0.0-0.5); Bilirubin Total 0.8 mg/dL (0.0-1.0); Blood Urea Nitrogen 18 mg/dL (9-16); Calcium 9.6 mg/dL (8.4-10.2); Carbon Dioxide 32 mmol/L (22-29); Chloride 107 mmol/L (96-108); Cholesterol 206 mg/dL (<200); Estimated Glomerular Filt Rate > 60; Glucose Random 74 mg/dL (60-115); HDL Cholesterol 60 mg/dL (>40); LDL Cholesterol Calculated 130 mg/dL (<100); Potassium 4.4 mmol/L (3.3-5.1); Sodium 141 mmol/L (135-145); Total Protein 7.4 g/dL (6.5-8.0); Triglycerides 81 mg/dL (<150)
[2023-08-13 14:28] LABS: Thyroid Stimulating Hormone 2.03 uIU/mL (0.32-4.0)
== END 2023-08-13 11:25 | disposition home or self-care (01) ==
LOC: HO.LAB 11:24
PROVIDERS: PCP Internal Medicine; Visit Provider Internal Medicine
DX: F20.9 Schizophrenia, unspecified (principal); I10 Essential (primary) hypertension
CPT/HCPCS: 36415; 80048; 80061; 80076; 84443; 85027

== ENCOUNTER 2024-02-11 09:01 | Outpatient (AMB) | payer MEDICARE, MEDICAID, SELFPAY ==
--- NOTE | 2024-02-11 09:05 | AM.OFFVISMDC ---
Intake Vital Signs 02/11/24 09:08 Height 5 ft 11 in Weight 192 lb BMI 26.8 BP 110/70 Blood Pressure Location Lt brachial Position Sitting Pulse 75 Pulse Source Pulse Oximeter Pulse Oximetry (%) 95 Oxygen Delivery Method Room Air Intake Visit Reasons: YANI [id number] Intake Note: Patient is here for an Annual Wellness Visit. Pt decline flu shot today. Artistic Associate Required: No Slaughterer Religious Ritual: Slaughterer Religious Ritual Present Accompanied by: staff Allergies haloperidol [From HALDOL] Allergy (Unknown, Verified 02/11/24 09:08) BAD REACTION dizziness Do you need a note to return to daycare/school/sports/work: No HPI V [id number] HPI Details 73-year-old male presents to the office requesting a subsequent wellness visit. Patient is declining a screening colonoscopy or Cologuard. He is also declining the flu vaccine. He understands the risks. [facility] Medical History Right shoulder strain Essential hypertension Schizophrenia, unspecified Surgical History History of colonoscopy History of tooth extraction History of hernia repair Family History Father CAD (coronary artery disease) Chronic mental illness Mental health disorder Mother No problems noted. Brother No problems noted. Social History Housing: House (senior living) Alcohol intake: never Patient Tobacco Use Status: Former Tobacco user e-Cigarette/Vaping Use: Never Used Second Hand Smoke Exposure: No service: No Current occupational status: disabled Cognitive needs: No Hearing needs: No Vision needs: Yes (Glasses) Questionnaire Medicare Wellness Checkup [age] What gender do you identify with?: male During the past 4 weeks, how much have you been bothered by emotional problems such as feeling anxious, depressed, irritable, sad or downhearted, and blue?: moderately During the past 4 weeks, has your physical & emotional health limited your social activities with family, friends, neighbors, or groups?: moderately During the past 4 weeks, how much bodily pain have you generally had?: moderate pain During the past 4 weeks, was someone available to help you if you needed & wanted help?: yes, some During the past 4 weeks, what was the hardest physical activity you could do for at least 2 minutes?: very light Can you get to places out of walking distance without help? (For eg., can you travel alone on buses, taxis or drive your car?): Yes Can you go shopping for groceries or clothes without someone's help?: Yes Can you prepare your own meals?: Yes Can you do your housework without help?: Yes Because of any health problems, do you need the help of another person with your personal care needs such as eating, bathing, dressing or getting around the house?: Yes Can you handle your own money without help?: Yes During the past 4 weeks, how would you rate your health in general?: good During the past 4 weeks how have things been going for you?: good & bad parts about equal Are you having difficulties driving your car?: not applicable, I don't use a car Do you always fasten your seat belt when you are in a car?: yes, usually During past 4 weeks, have you been bothered by the following: never: Sexual problems?, Trouble eating well?, Teeth or denture problems? and Problems using the telephone?, seldom: Tiredness or fatigue? and sometimes: Falling or dizzy when standing up Have you fallen 2 or more times in the past year?: No Are you afraid of falling?: No Are you a smoker?: no During the past 4 weeks, how many drinks of wine, beer, or other alcoholic beverages did you have?: no alcohol at all Do you exercise for about 20 minutes 3 or more times a week?: yes, most of the time Have you been given information to help with the following?: yes: Keeping track of your medications? and no: Hazards in your house that might hurt you? How often do you have trouble taking medicines the way you have been told to take them?: I always take medicine as prescribed How confident are you that you can control & manage most of your health problems?: somewhat confident What is your race?: White Mini Mental State Exam (MMSE) Orientation What is the (year) (season) (date) (day) (month)?: year, season and date Score Score: 3 Activity of Daily Living Bathing - sponge bath, tub bath or shower: receives no assistance (gets in/out by self, if usual bathing means Dressing - getting clothes from closets & drawers, including inner/outer garments & fasteners.: gets clothes & gets completely dressed without help Toileting - going to the 'toilet room' for urine/bowel elimination & cleaning self/arranging clothes: goes to toilet room, cleans self, arranges clothes without help Transfer: moves in & out of bed and chair without help (may use support object) Continence: controls urination/bowel movements completely by self Feeding: feeds self without help Total Score: 0 Information obtained from: informant Using telephone: independent Traveling: dependent Shopping: dependent Preparing meals: dependent Housework: dependent Taking medicine: dependent Managing money: independent PHQ-9 Over the last 2 weeks, how often have you been bothered by any of the following problems? 1. Little interest or pleasure in doing things: more than half the days 2. Feeling down, depressed, or hopeless: more than half the days 3. Trouble falling or staying asleep, or sleeping too much: more than half the days 4. Feeling tired or having little energy: more than half the days 5. Poor appetite or overeating: more than half the days 6. Feeling bad about yourself - or that you are a failure or have let yourself or your family down: more than half the days 7. Trouble concentrating on things, such as reading the newspaper or watching television: more than half the days 8. Moving or speaking so slowly that other people could have noticed. Or the opposite - being so fidgety or restless that you have been moving around a lot more than usual: more than half the days 9. Thoughts that you would be better off or of hurting yourself in some way: more than half the days Total score: 18 Depression Screening Interpretation: Positive Depression Screening Done: Yes Source: Developed by Drs. Gómez Molina, Sarai Sutton, Edwin Fermin and colleagues, with an educational sadie from [employer]. Thrive Questionnaire Date Thrive assessed: 08/13/23 INOCENCIO-7 AMB Questionnaire INOCENCIO-7 Date INOCENCIO - 7 assessed: 08/13/23 Source: Developed by Drs. Gómez Molina, Sarai Sutton, Edwin Fermin and colleagues, with an educational sadie from [employer]. Physical Exam Vital Signs: Last Vital Signs Pulse 75 02/11/24 09:08 BP 110/70 02/11/24 09:08 Pulse Ox 95 02/11/24 09:08 Oxygen Delivery Method Room Air 02/11/24 09:08 BMI result Body Mass Index 26.8 Balance: Negative Romberg: Negative Tandem Walk: Able to Walk and Turn: Able to Rise from sit to stand: Able to Hearing Whisper test: Pass Screening scheduled provided to the patient. [place] of care documented in the record. Assessment & Plan Assessment & Plan (1) Schizophrenia, unspecified: Code(s): F20.9 - Schizophrenia, unspecified Plan: Condition is stable. Continue current medications. (2) Essential hypertension: Code(s): I10 - Essential (primary) hypertension Plan: Condition is stable. Continue current medications. (3) Encounter for annual wellness exam in Medicare patient: Code(s): Z00.00 - Encounter for general adult medical examination without abnormal findings Plan: Patient is declining screening colonoscopy or the flu vaccine. Orders: Orders Complete Blood Count no Diff Today F20.9 - Schizophrenia, unspecified, I10 - Essential (primary) hypertension Basic Metabolic Panel Today F20.9 - Schizophrenia, unspecified, I10 - Essential (primary) hypertension Lipid Panel Today F20.9 - Schizophrenia, unspecified, I10 - Essential (primary) hypertension Liver Panel Today F20.9 - Schizophrenia, unspecified, I10 - Essential (primary) hypertension Hemoglobin A1c Today F20.9 - Schizophrenia, unspecified, I10 - Essential (primary) hypertension Thyroid Stimulating Hormone Today F20.9 - Schizophrenia, unspecified, I10 - Essential (primary) hypertension Medications: Refilled acetaminophen ER (Tylenol 8 Hour) 650 mg PO Q8H PRN 60 tabs 0RF fever or pain atorvastatin 10 mg PO BEDTIME 90 tabs 1RF propranolol 20 mg PO TID 270 tabs 0RF Quality Reporting (2019) Depression/Bipolar (159/160/161/177) PHQ-9: Total score: 18 Coding Level of Care Code Medicare Subsequent (G0439) Diagnoses Schizophrenia, unspecified F20.9 Essential hypertension I10 Encounter for annual wellness exam in Medicare patient Z00.00
[2024-02-11 09:08] VITALS: BP 110/70; PULSE 75; O2SAT 95; BMI 26.8
== END 2024-02-11 09:34 | disposition home or self-care (01) ==
PROVIDERS: PCP Internal Medicine; Visit Provider Internal Medicine
DX: Z00.00 Encounter for general adult medical examination without abnormal findings (principal); F20.9 Schizophrenia, unspecified; I10 Essential (primary) hypertension

== ENCOUNTER → 2024-02-11 09:01 | Outpatient (BNVA) | payer MEDICARE, OTHER, SELFPAY | PROVIDERS: PCP Internal Medicine; Visit Provider Internal Medicine ==

== ENCOUNTER → 2024-05-19 10:29 | Outpatient (BNVA) | payer MEDICARE, SELFPAY | PROVIDERS: PCP Internal Medicine; Visit Provider Internal Medicine | DX: R21 Rash and other nonspecific skin eruption (principal) | CPT/HCPCS: 96127 ==

== ENCOUNTER 2024-07-20 08:52 | Outpatient (REF) | payer MEDICARE, MEDICAID, SELFPAY ==
[2024-07-20 09:04] LABS: MANUAL DIFF FLAG NO
--- OUTSIDE RECORDS SUMMARY | 2024-07-20 09:34 | XMS_ITS | Clinical Summary ---
Author Organization [facility] Address [address] [place] [address] Care Team Providers Care Crop Duster Helper Name Role Phone Pcp, No Primary Care Provider Unavailabl e Allergies Active Allergy Reactions Criticality Noted Date Comments Haloperidol Unknown/Patient and Family Unable to Define Medium 08/18/2020 Medications Medication Sig Dispensed Refills Start Date End Date Status amLODIPine (NORVASC) 5 MG tablet Take 5 mg by mouth daily. 07/30/2020 Active benztropine (COGENTIN) 2 MG tablet Take 2 mg by mouth 2 (two) times a day. 08/06/2020 Active fluPHENAZine decanoate (PROLIXIN DECANOATE) 25 MG/ML injection Inject into the shoulder, thigh, or buttocks every 14 days (2 weeks). 08/06/2020 Active LORazepam (ATIVAN) 0.5 MG tablet 0.5 mg. 07/30/2020 Active propranolol (INDERAL) 20 MG tablet Take 20 mg by mouth 3 (three) times a day. 07/30/2020 Active acetaminophen (TYLENOL) 325 MG tabletIndications:Fa cial cellulitis Take 3 tablets (975 mg total) by mouth 3 times daily (every 8 hours) as needed for moderate pain. 0 08/22/2020 Active amoxicillin-clavulan ate (AUGMENTIN) 875-125 MG per tabletIndications:Fa cial cellulitis Take 1 tablet by mouth 2 (two) times a day. 14 tablet 08/22/2020 Active Active Problems Problem Noted Date Diagnosed Date Facial cellulitis 08/19/2020 Family History Medical History Relation Name Comments Arthritis Mother Relation Name Status Comments Mother Social History Tobacco Use Types Packs/Day Years Used Date Smoking Tobacco: Former Cigarettes 1 15 0 04/20/1969 - 04/20/1984 Smokeless Tobacco: Former Tobacco Cessation:Counseling Given: No Sex and Gender Information Value Date Recorded Sex Assigned at Not on file Gender Identity Not on file Sexual Orientation Not on file Last Filed Vital Signs Vital Sign Reading Time Taken Comments Blood Pressure 138/82 08/22/2020 7:48 AM EDT Pulse 66 08/22/2020 7:48 AM EDT Temperature 36.4 ??C (97.5 ??F) 08/22/2020 7:48 AM ED T Respiratory Rate 18 08/22/2020 7:48 AM EDT Oxygen Saturation 96% 08/22/2020 7:48 AM EDT Inhaled Oxygen Concentration - - Weight 104 kg (228 lb 12.8 oz) 08/19/2020 2:00 A M EDT Height 182.9 cm (6') 08/19/2020 2:00 AM EDT Body Mass Index 31.03 08/19/2020 2:00 AM EDT Plan of Treatment Health Maintenance Due Date Last Done Comments Hepatitis C Virus Screening 1949 DTaP/Tdap/Td Vaccines (1 - Tdap) 1968 Colonoscopy 1994 Pneumococcal Vaccines 50+ (1 of 1 - PCV) 1999 Zoster (Shingles) Vaccine (1 of 2) 1999 Influenza Vaccine 11/19/2023 COVID-19 Vaccine (1 - 2023-2 5 season) 2023 RSV Vaccine 60 years and old er and Patients (1 - 1-dose 75+ series) 2024 Hepatitis B Vaccines Aged Out No long er eligible based on patient's age to complete this topic Advance Directives * Full Code (Latest Code Status on File) Date Activated Date Inactivated Comments 08/19/2020 12:51 AM Care Teams Crop Duster Helper Relationship Specialty Start Date End Date Pcp, No PCP - General General Medicine 12/04/23
[2024-07-20 09:38] LABS: Basophils Absolute Auto 0.1 X10*3/uL (0.0-0.2); Basophils Percent Auto 0.9 % (0-2); Eosinophils Absolute Auto 0.2 X10*3/uL (0.0-0.4); Eosinophils Percent Auto 2.3 % (0-4); Hematocrit 46.2 % (42.0-52.0); Imm Gran Abs Auto 0.01 X10*3/uL (0.00-0.03); Imm Gran Pct Auto 0.2 % (0.0-0.4); Lymphocytes Absolute Auto 1.9 X10*3/uL (1.2-4.9); Lymphocytes Percent Auto 28.5 % (20-40); Mean Corpuscular HGB Conc 32.5 g/dl (31.0-36.0); Mean Corpuscular Hemoglobin 28.8 pg (27.0-33.0); Mean Corpuscular Volume 88.8 fL (80.0-98.0); Mean Platelet Volume 9.4 fL (9.4-12.4); Monocytes Absolute Auto 0.6 X10*3/uL (0.1-1.2); Monocytes Percent Auto 9.3 % (2-11); Neutrophils Absolute Auto 3.9 x10*3/uL (2.0-8.3); Neutrophils Percent Auto 58.8 % (45-73); Platelet Count 240 X10*3/uL (160-400); Red Cell Distribution Width 12.8 % (11.0-16.0); White Blood Count 6.6 X10*3/uL (4.8-10.8)
[2024-07-20 09:52] LABS: Estimated Average Glucose 103 mg/dL; Hemoglobin A1C 133.4062 umol/L; Hemoglobin A1c % 5.2 % (<6.0); Total Hemoglobin (HGBA1C) 3960.6228 umol/L
[2024-07-20 10:05] LABS: Alanine Aminotransferase 25 U/L (0-40); Albumin Level 4.1 g/dL (3.5-5.0); Alkaline Phosphatase 48 U/L (39-117); Anion Gap 10 (12-20); Aspartate Amino Transferase 18 U/L (5-37); Bilirubin Total 0.9 mg/dL (0.0-1.0); Blood Urea Nitrogen 17 mg/dL (9-16); Calcium 9.6 mg/dL (8.4-10.2); Carbon Dioxide 28 mmol/L (22-29); Chloride 108 mmol/L (96-108); Cholesterol 142 mg/dL (<200); Estimated Glomerular Filt Rate > 60; Glucose Random 82 mg/dL (60-115); HDL Cholesterol 60 mg/dL (>40); LDL Cholesterol Calculated 71 mg/dL (<100); Potassium 4.4 mmol/L (3.3-5.1); Sodium 142 mmol/L (135-145); Total Protein 7.2 g/dL (6.5-8.0); Triglycerides 55 mg/dL (<150)
== END 2024-07-20 08:53 | disposition home or self-care (01) ==
LOC: HO.LAB 08:52
PROVIDERS: PCP Internal Medicine; Visit Provider Nurse Practitioner Psychiatric/Mental Health
DX: Z79.899 Other long term (current) drug therapy (principal)
CPT/HCPCS: 36415; 80053; 80061; 83036; 85025

== ENCOUNTER 2024-07-29 09:56 | Outpatient (AMB) | payer MEDICARE, MEDICAID, SELFPAY ==
--- NOTE | 2024-07-29 09:59 | MHC.OFFWIV ---
Intake Vital Signs 07/29/24 10:01 Height 5 ft 11 in Weight 189 lb BMI 26.4 BP 148/90 H Blood Pressure Location Lt brachial Position Sitting Pulse 87 Pulse Source Pulse Oximeter Temp 98.1 F Temp Source Oral Pulse Oximetry (%) 98 Oxygen Delivery Method Room Air Intake Visit Reasons: EP Rashes turning into sores on legs & thigh Intake Note: Pt presents to the office today for c/o sores on his legs. Pt states he was told by another urgent care in April that he had ringworm and was prescribed medications for it. Pt states they are painful and itchy. Patient Tobacco Use Status: Former Tobacco user Allergies haloperidol [From HALDOL] Allergy (Unknown, Verified 07/29/24 10:03) BAD REACTION dizziness HPI EP Rashes turning into sores on legs & thigh HPI Details This is a 74-year-old male patient who presents to the walk-in clinic today with 2 issues. He states he has ongoing rashes on his ankles. He was told at one point that this was ringworm, however antifungals were ineffective. He was later prescribed hydrocortisone cream from his PCP, Dr. Pimentel However rash has been ongoing. He states it is dry and itchy. Patient also has a new skin issue, which has been present for about 1 week. He has dark red/black lesions on the back of his left thigh. He states these are painful/burning to the touch. Denies any known exposure to any irritants. [facility] Medical History Right shoulder strain Essential hypertension Schizophrenia, unspecified Surgical History History of colonoscopy History of tooth extraction History of hernia repair Family History Father CAD (coronary artery disease) Chronic mental illness Mental health disorder Mother No problems noted. Brother No problems noted. Social History Housing: House Alcohol intake: never Patient Tobacco Use Status: Former Tobacco user e-Cigarette/Vaping Use: Never Used Second Hand Smoke Exposure: Yes service: No Current occupational status: disabled Cognitive needs: No Hearing needs: No Vision needs: Yes (Glasses) Review of Systems Const All systems reviewed & are unremarkable except as noted in HPI and below Physical Exam Vital Signs: Last Vital Signs Temp 98.1 F 07/29/24 10:01 Pulse 87 07/29/24 10:01 BP 148/90 H 07/29/24 10:01 Pulse Ox 98 07/29/24 10:01 Oxygen Delivery Method Room Air 07/29/24 10:01 BMI result Body Mass Index 26.4 Const General: cooperative, healthy appearing and no acute distress HEENT Head: Yes normal to inspection Ears: hearing grossly normal bilaterally Resp Effort & Inspection: normal respiratory effort Auscultation: clear to auscultation bilaterally Cardio Rate: regular rate Rhythm: regular rhythm Skin Other: Patchy dry, erythematous rash b/l lower legs/ankles. No defined borders noted. No open areas. Small clusters of dark red/black circular lesions on posterior left upper thigh, spreading laterally outward in linear pattern. No drainage. No surrounding erythema. Extrem General: Yes capillary refill normal and Yes no clubbing, cyanosis or edema Psych Appearance: grossly normal Speech and movement: Normal speech and movement present Assessment & Plan Assessment & Plan (1) Herpes zoster: Code(s): B02.9 - Zoster without complications Qualifiers: Herpes zoster complications: without complications Qualified Code(s): B02.9 - Zoster without complications Plan: This appears to be a zoster rash on his left upper posterior thigh, extending laterally. However this is an atypical presentation. Will start him on valacyclovir. We reviewed use of this. He will f/u with PCP Dr. Marin in less than 2 weeks, or advised to f/u sooner or return to [facility] as needed. He may need evaluation by derm. (2) Dermatitis of lower extremity: Code(s): L30.9 - Dermatitis, unspecified Plan: He failed treatment with antifungals and hydrocortisone cream. Will try a stronger steroid cream for his lower extremity dermatitis. We reviewed use of this. He will follow up with PCP or walk-in as needed. Medications: New valacyclovir 1,000 mg PO TID 10 days 30 tabs 0RF B02.9 - Zoster without complications betamethasone dipropionate 0.05% Apply to lower legs twice a day 1 appl topical BID 2 weeks PRN 60 mL 1RF skin irritation R21 - Rash and other nonspecific skin eruption Coding Level of Care Code Est Pt Level 4 (09652) Diagnoses Herpes zoster without complication B02.9 Herpes zoster complications: without complications Dermatitis of lower extremity L30.9
[2024-07-29 10:01] VITALS: BP 148/90; PULSE 87; TEMP 36.7; O2SAT 98; BMI 26.4
--- OUTSIDE RECORDS SUMMARY | 2024-07-29 10:33 | XMS_ITS | Clinical Summary ---
Author Organization [facility] Address [address] [place] [address] Care Team Providers Care Jigger Artisan Name Role Phone Pcp, No Primary Care [...] Inactivated Comments 08/19/2020 12:51 AM Care Teams Jigger Artisan Relationship Specialty Start Date End Date Pcp, No PCP - General General Medicine 12/04/23
== END 2024-07-29 10:30 | disposition home or self-care (01) ==
PROVIDERS: PCP Internal Medicine
DX: B02.9 Zoster without complications (principal); L30.9 Dermatitis, unspecified

== ENCOUNTER → 2024-07-29 09:56 | Outpatient (BNVA) | payer MEDICARE, MEDICAID, SELFPAY | PROVIDERS: PCP Internal Medicine | DX: B02.9 Zoster without complications (principal); L30.9 Dermatitis, unspecified | CPT/HCPCS: 99212 ==

== ENCOUNTER 2024-08-11 09:44 | Outpatient (AMB) | payer MEDICARE, SELFPAY ==
--- NOTE | 2024-08-11 10:02 | MHC.PC.OV ---
Vital Signs 08/11/24 10:03 Height 5 ft 11 in Weight 188 lb 8 oz BMI 26.3 BP 130/82 Blood Pressure Location Lt brachial Position Sitting Pulse 79 Pulse Source Pulse Oximeter Temp 97.5 F Temp Source Temporal Artery Scan Pulse Oximetry (%) 99 Oxygen Delivery Method Room Air Intake Visit Reasons: 6mth f/u Intake Note: Patient is here to follow up on HTN, Schizophernia. Information Technology Project Manager Required: No Legal Records Clerk: Present Accompanied by: staff Allergies haloperidol [From HALDOL] Allergy (Unknown, Verified 08/16/24 07:36) BAD REACTION dizziness Medication List - Last Reconciled 08/16/24 by Jameson Hurst MD acetaminophen ER (Tylenol 8 Hour) 650 mg PO Q8H PRN amlodipine 5 mg PO DAILY atorvastatin 10 mg PO BEDTIME benztropine 2 mg PO BID betamethasone dipropionate 0.05% 1 appl topical BID PRN 2 weeks cholecalciferol (vitamin D3) 25 mcg PO DAILY fluphenazine decanoate mg IM hydrocortisone 2.5% 1 appl topical BID PRN lorazepam 0.5 mg PO BID PRN multivitamin with folic acid 400 mcg (Tab-A-Javi) 1 tab PO DAILY propranolol 20 mg PO TID valacyclovir 1,000 mg PO TID 10 days Tobacco use date assessed: 08/11/24 Fall risk assessment: No Falls in past year Last assessed Fall Risk: 08/11/24 Dental Screening Dental Screen Date: 05/19/24 [facility] Medical History Right shoulder strain Essential hypertension Schizophrenia, unspecified Surgical History History of colonoscopy (~09/08/08) History of tooth extraction History of hernia repair Family History Father CAD (coronary artery disease) Chronic mental illness Mental health disorder Mother No problems noted. Brother No problems noted. Social History Housing: House Alcohol intake: never Patient Tobacco Use Status: Former Tobacco user e-Cigarette/Vaping Use: Never Used Second Hand Smoke Exposure: Yes service: No Current occupational status: disabled Cognitive needs: No Hearing needs: No Vision needs: Yes (Glasses) Questionnaire Thrive Questionnaire Date Thrive assessed: 05/19/24 Currently or been in a relationship where the following occur: No concerns reported THRIVE Score: 0 INOCENCIO-7 AMB Questionnaire INOCENCIO-7 Date INOCENCIO - 7 assessed: 05/19/24 Source: Developed by Drs. Gómez Molina, Sarai Sutton, Edwin Ferimn and colleagues, with an educational sadie from [employer]. Physical exam (Primary Care) Vital Signs: Last Vital Signs Temp 97.5 F 08/11/24 10:03 Pulse 79 08/11/24 10:03 BP 130/82 08/11/24 10:03 Pulse Ox 99 08/11/24 10:03 Oxygen Delivery Method Room Air 08/11/24 10:03 Care Plan Goal for BP management: Blood pressure is under range. BMI result Body Mass Index 26.3 Tobacco/Smoking Status: Tobacco use Status Tobacco use date assessed 08/11/24 08/11/24 10:20 Patient Tobacco Use Status Former Tobacco user 08/11/24 10:20 e-Cigarette/Vaping Use Never Used 08/11/24 10:20 Thrive Assessment: Date of Thrive Assessment Date Thrive assessed 05/19/24 08/11/24 10:20 Currently or been in a relationship where the following occur: No concerns reported Coding Level of Care Code Est Pt Level 4 (22136) Complex EM visit Add On G2211 Diagnoses Schizophrenia, unspecified F20.9 Essential hypertension I10 Eczema L30.9 Assessment & Plan Assessment & Plan (1) Schizophrenia, unspecified: Code(s): F20.9 - Schizophrenia, unspecified Category: Medical Plan: Condition is stable. Patient continues to live in a long-term setting. The attendant complains that patient has poor hygiene. Patient sees a psychiatrist and a therapist. (2) Essential hypertension: Code(s): I10 - Essential (primary) hypertension Category: Medical Plan: Blood pressure is in range. (3) Eczema: Code(s): L30.9 - Dermatitis, unspecified Plan: Faint rash over the lower leg. Steroid cream prescribed. Reassured that there is no shingles. Plan History of Present Illness The patient is a 74-year-old male presenting with concerns about a rash and a suspected hernia. Previously, he has been treated for shingles with topical cream, and although currently not experiencing shingles, a new rash has developed in a different location, suspected to be due to hygiene practices or possibly a ringworm infection. He has been applying a lotion for two weeks with some improvement observed. The patient indicates that a potential inguinal hernia is causing discomfort. Environmental factors, including the use of sprays in a long-term, contributes to respiratory irritation. Recent blood work was noted to be within normal limits. Social History - Resides in a long-term with minimal hygiene practices; infrequent showers are common among residents, including the patient. - Complains of odor issues due to group living conditions. - Exposure to sprays used to mask odors in the residence environment. Review of Systems - Skin: Reports rash on leg suspected to be ringworm; distinction made between previous shingles and current rash. - Respiratory: Reports discomfort possibly due to environmental sprays at long-term. - Gastrointestinal: Reports discomfort suspected to be due to hernia. - General: Denies routine daily showers; infrequent hygiene practices noted. Physical Exam General: Cooperative and healthy appearing Nutritional Appearance: Well nourished Orientation/consciousness: Patient oriented x3 Limitations: No limitations Head: Normal to inspection General: Appearance normal, both eyes and all related structures Neck: Normal visual inspection Chest: Normal palpation of entire chest wall Respiratory: Patient is complaining about something in the lung, possibly due to environmental factors such as smoke and poor hygiene in the long-term. ormal respiratory effort Neurology: Patient oriented x3 Results - Labs: Recent blood work is normal. Plan To manage the dermatophytosis, topical antifungal treatment should be continued, with an evaluation of the application method. Monitoring the inguinal hernia for any increase in symptoms is advised, and investigation into environmental influences on respiratory comfort is important. Ensuring personal hygiene may address some skin issues and should be encouraged. Overall progress will determine if additional interventions are required. Patient was informed and verbally consented to the use of an ambient scribe for clinic note documentation during this visit. Discussion Notes During our discussion, I addressed the identification of the rash, likely dermatophytosis, and reviewed the current treatment with a topical antifungal lotion. I explained the importance of proper hygiene in skin care and controlling the rash. The management plan for the suspected inguinal hernia includes monitoring symptoms to decide if surgical consultation is necessary. I highlighted my concern about environmental spray exposure and its impact on respiratory health, advising the patient to minimize exposure when possible. I also discussed follow-up care and evaluation to ensure effective treatment outcomes and reassessment if symptoms change. Patient Instructions - Continue using the steroid lotion for the rash as directed. - Maintain personal hygiene, including more frequent showers if possible. - Monitor the hernia; report any increase in symptoms or discomfort. - Avoid prolonged exposure to sprays and other respiratory irritants. - Follow up if symptoms do not improve or worsen.
[2024-08-11 10:03] VITALS: BP 130/82; PULSE 79; TEMP 36.4; O2SAT 99; BMI 26.3
--- OUTSIDE RECORDS SUMMARY | 2024-08-11 10:50 | XMS_ITS | Clinical Summary ---
Author Organization [facility] Address [address] [place] [address] Care Team Providers Care Telephone Station Repairer Name Role Phone Pcp, No Primary Care Provider Unavailabl e Allergies Active Allergy Reactions Criticality Noted Date Comments Haloperidol Unknown/Patient and Family Unable to Define Medium 08/18/2020 Medications amLODIPine (NORVASC) 5 MG tablet Take 5 [...] day. 07/30/2020 Active acetaminophen (TYLENOL) 325 MG tabletIndicatio ns:Facial cellulitis Take 3 tablets (975 mg total) by mouth 3 times daily (every 8 hours) as needed for moderate pain. 0 08/22/2020 Active amoxicillin-cla vulanate (AUGMENTIN) 875-125 MG per tabletIndicatio ns:Facial cellulitis Take 1 tablet by mouth 2 [...] Recorded Sex Assigned at Not on file Legal Sex Male 4:45 PM EDT Gender Identity Not on file Sexual Orientation [...] 2) 1999 Influenza Vaccine 11/19/2023 COVID-19 Vaccine ( - 2023-2 5 season) 2023 RSV Vaccine 60 years and old er and Patients (1 - 1-dose 75+ series) 2024 Hepatitis B Vaccines Aged Out No long er eligible based on patient's age to complete this topic Insurance MEDICARE PART A & B * Guarantor: Amari Christianson Account Type Relation to Patient Date of Phone Billing Address Personal/Family Self [address] [place] [id number] Advance Directives * Full Code (Latest Code Status on File) Date Activated Date Inactivated Comments 08/19/2020 12:51 AM Care Teams Telephone Station Repairer Relationship Specialty Start Date End Date Pcp, No PCP - General General Medicine 12/04/23
== END 2024-08-11 12:20 | disposition home or self-care (01) ==
LOC: HO.HMCH 09:44
PROVIDERS: PCP Internal Medicine; Visit Provider Internal Medicine
DX: F20.9 Schizophrenia, unspecified (principal); I10 Essential (primary) hypertension; L30.9 Dermatitis, unspecified

== ENCOUNTER → 2024-08-11 09:44 | Outpatient (BNVA) | payer MEDICARE, SELFPAY | PROVIDERS: PCP Internal Medicine; Visit Provider Internal Medicine | DX: F20.9 Schizophrenia, unspecified (principal); L30.9 Dermatitis, unspecified; I10 Essential (primary) hypertension | CPT/HCPCS: 99212 ==

== ENCOUNTER 2024-08-25 09:18 | Outpatient (AMB) | payer MEDICARE, MEDICAID, SELFPAY ==
--- NOTE | 2024-08-25 09:20 | MHC.PC.OV ---
Vital Signs 08/25/24 09:21 Height 5 ft 11 in Weight 188 lb 6 oz BMI 26.3 BP 130/70 Blood Pressure Location Lt brachial Position Sitting Pulse 78 Pulse Source Pulse Oximeter Temp 97.3 F Temp Source Temporal Artery Scan Pulse Oximetry (%) 97 Oxygen Delivery Method Room Air Intake Visit Reasons: 3 month f/u Intake Note: Patient is here to follow up on HTN. Complaint of pain in left lower abdomen area on going for a month. Manager Investment Banking Required: No Telegraph Repeater Mechanic: Present Accompanied by: STAFF Allergies haloperidol [From HALDOL] Allergy (Unknown, Verified 08/25/24 09:37) BAD REACTION dizziness Medication List - Last Reconciled 08/25/24 by Jameson Hurst MD acetaminophen ER (Tylenol 8 Hour) 650 mg PO Q8H PRN amlodipine 5 mg PO DAILY atorvastatin 10 mg PO BEDTIME benztropine 2 mg PO BID betamethasone dipropionate 0.05% 1 appl topical BID PRN 2 weeks cholecalciferol (vitamin D3) 25 mcg PO DAILY fluphenazine decanoate mg IM hydrocortisone 2.5% 1 appl topical BID PRN lorazepam 0.5 mg PO BID PRN multivitamin with folic acid 400 mcg (Tab-A-Javi) 1 tab PO DAILY propranolol 20 mg PO TID valacyclovir 1,000 mg PO TID 10 days Tobacco use date assessed: 08/25/24 Fall risk assessment: No Falls in past year Last assessed Fall Risk: 08/25/24 Dental Screening Dental Screen Date: 05/19/24 HPI 3 month f/u HPI Details 74-year-old male presents to the office for a sick visit. He is accompanied by an attendant from the [place] [facility]. Patient firmly believes that he has an inguinal hernia. He thinks there is a lump in the lower end of his abdomen which can be painful at times. The attendant reports that he is very active in the house, often bending and stretching with no difficulties. This symptom was discussed in the last office visit a few weeks ago. I tried to reassure the patient that on my physical exam there was no hernia. However patient is very adamant and wants further testing. COUNT INCLUDES [facility] Medical History Right shoulder strain Essential hypertension Schizophrenia, unspecified Surgical History History of colonoscopy (~09/08/08) History of tooth extraction History of hernia repair Family History Father CAD (coronary artery disease) Chronic mental illness Mental health disorder Mother No problems noted. Brother No problems noted. Social History Housing: House Alcohol intake: never Patient Tobacco Use Status: Former Tobacco user e-Cigarette/Vaping Use: Never Used Second Hand Smoke Exposure: Yes service: No Current occupational status: disabled Cognitive needs: No Hearing needs: No Vision needs: Yes (Glasses) Questionnaire PHQ-9 Over the last 2 weeks, how often have you been bothered by any of the following problems? 1. Little interest or pleasure in doing things: not at all 2. Feeling down, depressed, or hopeless: not at all 3. Trouble falling or staying asleep, or sleeping too much: not at all 4. Feeling tired or having little energy: not at all 5. Poor appetite or overeating: not at all 6. Feeling bad about yourself - or that you are a failure or have let yourself or your family down: not at all 7. Trouble concentrating on things, such as reading the newspaper or watching television: not at all 8. Moving or speaking so slowly that other people could have noticed. Or the opposite - being so fidgety or restless that you have been moving around a lot more than usual: not at all 9. Thoughts that you would be better off or of hurting yourself in some way: not at all Total score: 0 Source: Developed by Drs. Gómez Molina, Sarai Sutton, Edwin Fermin and colleagues, with an educational sadie from [employer]. Thrive Questionnaire Date Thrive assessed: 05/19/24 I am a: Patient What is your living situation today?: I choose not to answer this question Within the past 12 months, did the food you bought not last and you didn't have the money to get more?: Often true Within the past 12 months, did you worry whether your food would run out before you got money to buy more?: Often true Do you have trouble paying for medicines?: No Do you have trouble getting transportation to medical appointments?: No Do you have trouble paying your heating and electricity bill?: No Do you have trouble taking care of your child, family member or friend?: No Do you have trouble with day-to-day activities such as bathing, preparing meals, shopping, managing finances, etc.?: No Are you currently unemployed and looking for a job?: No Are you interested in more education?: No Please select the resources that you would like help with: Transportation Currently or been in a relationship where the following occur: I choose not to answer THRIVE Score: 2 AUDIT C Alcohol Use Questionnaire (AUDIT-C) 1. How often do you have a drink containing alcohol?: Never Total Score: 0 INOCENCIO-7 AMB Questionnaire INOCENCIO-7 Date INOCENCIO - 7 assessed: 05/19/24 Feeling nervous, anxious, or on edge: 0 = Not at all Not being able to stop or control worryin = Not at all Worrying too much about different things: 0 = Not at all Trouble relaxin = Not at all Being so restless that it is hard to sit still: 0 = Not at all Becoming easily annoyed or irritable: 0 = Not at all Feeling afraid as if something awful might happen: 0 = Not at all Total INOCENCIO-7 score (0-4 normal; 5-9 mild; 10-14 moderate; 15-21 severe): 0 Source: Developed by Drs. Gómez Molina, Sarai Sutton, Edwin Fermin and colleagues, with an educational sadie from [employer]. Physical exam (Primary Care) Vital Signs: Last Vital Signs Temp 97.3 F 08/25/24 09:21 Pulse 78 08/25/24 09:21 BP 130/70 08/25/24 09:21 Pulse Ox 97 08/25/24 09:21 Oxygen Delivery Method Room Air 08/25/24 09:21 BMI result Body Mass Index 26.3 Tobacco/Smoking Status: Tobacco use Status Tobacco use date assessed 08/25/24 08/25/24 09:26 Patient Tobacco Use Status Former Tobacco user 08/25/24 09:26 e-Cigarette/Vaping Use Never Used 08/25/24 09:26 PHQ-9: PHQ-9 Score PHQ-9: Total score 0 08/25/24 09:26 Thrive Assessment: Date of Thrive Assessment Date Thrive assessed 05/19/24 08/25/24 09:26 Currently or been in a relationship where the following occur: I choose not to answer Const General: cooperative and healthy appearing Nutritional Appearance: well nourished Orientation/consciousness: patient oriented x3 Limitations: no limitations HENMT Head: Yes normal to inspection Eyes General: appearance normal, both eyes and all related structures Neck Neck: Yes normal visual inspection Chest Chest palpation & inspection: normal palpation of entire chest wall Resp Effort & Inspection: normal respiratory effort Other: Groin: No swelling. Hernial orifices are negative. Neuro General: patient oriented x3 Coding Level of Care Code Est Pt Level 4 (39445) Complex EM visit Add On G2211 Diagnoses Inguinal hernia K40.90 Assessment & Plan Assessment & Plan (1) Inguinal hernia: Code(s): K40.90 - Unilateral inguinal hernia, without obstruction or gangrene, not specified as recurrent Plan: An ultrasound of the pelvis to allay his concerns of hernia was ordered.
[2024-08-25 09:21] VITALS: BP 130/70; PULSE 78; TEMP 36.3; O2SAT 97; BMI 26.3
--- OUTSIDE RECORDS SUMMARY | 2024-08-25 09:54 | XMS_ITS | Clinical Summary ---
Author Organization [facility] Address [address] [place] [address] Care Team Providers Care Yard Jockey Name Role Phone Pcp, No Primary Care [...] Zoster (Shingles) Vaccine (1 of 2) 1999 COVID-19 Vaccine ( - 2023-2 5 season) 2023 RSV Vaccine 60 years and old er and Patients (1 - 1-dose 75+ series) 2024 Influenza Vaccine 11/18/2024 Hepatitis B Vaccines Aged Out No long er eligible based on patient's age to complete this topic Insurance MEDICARE PART A & B Advance Directives * Full Code (Latest Code Status on File) Date Activated Date Inactivated Comments 08/19/2020 12:51 AM Care Teams Yard Jockey Relationship Specialty Start Date End Date Pcp, No PCP - General General Medicine 12/04/23
== END 2024-08-25 09:55 | disposition home or self-care (01) ==
LOC: HO.HMCH 09:19
PROVIDERS: PCP Internal Medicine; Visit Provider Internal Medicine
DX: K40.90 Unilateral inguinal hernia, without obstruction or gangrene, not specified as recurrent (principal)

== ENCOUNTER → 2024-08-25 09:18 | Outpatient (BNVA) | payer MEDICARE, MEDICAID, SELFPAY | PROVIDERS: PCP Internal Medicine; Visit Provider Internal Medicine | DX: K40.90 Unilateral inguinal hernia, without obstruction or gangrene, not specified as recurrent (principal) | CPT/HCPCS: 99212 ==

== ENCOUNTER 2024-10-14 12:50 | Outpatient (REF) | payer MEDICARE, SELFPAY ==
--- NOTE | ~2024-10-14 | US_ITS ---
EXAMINATION: US PELVIS LIMITED HISTORY: K40.90 - Unilateral inguinal hernia, without obstruction or gangrene, no... COMPARISON: There are no prior studies available for comparison. TECHNIQUE: Sonographic examination of the right inguinal region was performed. FINDINGS: There is a 3.6 x 4.8 x 2.6 cm hypoechoic structure which may represent a loop of bowel in an inguinal hernia. US/US pelvic limited IMPRESSION: Possible right inguinal hernia containing bowel, this could be confirmed with CT. Electronically signed by: Gómez Mccoy MD 10/14/2024 01:50 PM EDT
--- OUTSIDE RECORDS SUMMARY | 2024-10-14 13:25 | XMS_ITS | Clinical Summary ---
Author Organization [facility] Address [address] [place] [address] Care Team Providers Care Senior Risk Analyst Name Role Phone Pcp, No Primary Care [...] 66 08/22/2020 7:48 AM EDT Temperature 36.4 C (97.5 F) 08/22/2020 7:48 AM EDT Respiratory Rate 18 08/22/2020 7:48 AM EDT [...] Inactivated Comments 08/19/2020 12:51 AM Care Teams Senior Risk Analyst Relationship Specialty Start Date End Date Pcp, No PCP - General General Medicine 12/04/23
== END 2024-10-14 12:51 | disposition home or self-care (01) ==
LOC: HO.US 12:50
PROVIDERS: PCP Internal Medicine; Visit Provider Internal Medicine
DX: K40.90 Unilateral inguinal hernia, without obstruction or gangrene, not specified as recurrent (principal)
CPT/HCPCS: 76857

== ENCOUNTER → 2024-10-14 12:53 | Outpatient (BNV) | payer MEDICARE, SELFPAY | PROVIDERS: PCP Internal Medicine; Visit Provider Radiology Diagnostic Radiology | DX: K40.90 Unilateral inguinal hernia, without obstruction or gangrene, not specified as recurrent (principal) | CPT/HCPCS: 76857 ==

== ENCOUNTER 2025-02-16 08:52 | Outpatient (AMB) | payer MEDICARE, SELFPAY ==
--- NOTE | 2025-02-16 09:14 | AM.OFFVISMDC ---
Intake Vital Signs 02/16/25 09:16 Height 5 ft 11 in Weight 179 lb 6 oz BMI 25.0 BP 110/64 Blood Pressure Location Lt brachial Position Sitting Pulse 58 Pulse Source Pulse Oximeter Temp 97.1 F Temp Source Temporal Artery Scan Pulse Oximetry (%) 100 Oxygen Delivery Method Room Air Intake Visit Reasons: AWV - see comments Intake Note: Patient is here for an Annual Wellness Visit. Production Planning Supervisor Required: No Curtain Fitter: Curtain Fitter Present Accompanied by: STAFF Allergies haloperidol (From HALDOL) Allergy (Unknown, Verified 02/16/25 09:57) BAD REACTION dizziness HPI AWV - see comments HPI Details 74-year-old male presents to the office for an annual wellness exam. [facility] Medical History Right shoulder strain Essential hypertension Schizophrenia, unspecified Surgical History History of colonoscopy (~09/08/08) History of tooth extraction History of hernia repair Family History Father CAD (coronary artery disease) Chronic mental illness Mental health disorder Mother No problems noted. Brother No problems noted. Social History Housing: House Alcohol intake: never Patient Tobacco Use Status: Former Tobacco user e-Cigarette/Vaping Use: Never Used Second Hand Smoke Exposure: Yes service: No Current occupational status: disabled Cognitive needs: No Hearing needs: No Vision needs: Yes (Glasses) Questionnaire Medicare Wellness Checkup [age] What gender do you identify with?: male During the past 4 weeks, how much have you been bothered by emotional problems such as feeling anxious, depressed, irritable, sad or downhearted, and blue?: quite a bit During the past 4 weeks, has your physical & emotional health limited your social activities with family, friends, neighbors, or groups?: quite a bit During the past 4 weeks, how much bodily pain have you generally had?: mild pain During the past 4 weeks, was someone available to help you if you needed & wanted help?: yes, a little During the past 4 weeks, what was the hardest physical activity you could do for at least 2 minutes?: very light Can you get to places out of walking distance without help? (For eg., can you travel alone on buses, taxis or drive your car?): No Can you go shopping for groceries or clothes without someone's help?: No Can you prepare your own meals?: Yes Can you do your housework without help?: No Because of any health problems, do you need the help of another person with your personal care needs such as eating, bathing, dressing or getting around the house?: No Can you handle your own money without help?: Yes During the past 4 weeks, how would you rate your health in general?: fair During the past 4 weeks how have things been going for you?: pretty bad Are you having difficulties driving your car?: not applicable, I don't use a car Do you always fasten your seat belt when you are in a car?: yes, usually During past 4 weeks, have you been bothered by the following: never: Sexual problems?, seldom: Problems using the telephone? and Tiredness or fatigue?, sometimes: Falling or dizzy when standing up and often: Trouble eating well? and Teeth or denture problems? Have you fallen 2 or more times in the past year?: No Are you afraid of falling?: Yes Are you a smoker?: no During the past 4 weeks, how many drinks of wine, beer, or other alcoholic beverages did you have?: no alcohol at all Do you exercise for about 20 minutes 3 or more times a week?: yes, all the time Have you been given information to help with the following?: no: Hazards in your house that might hurt you? and no: Keeping track of your medications? How often do you have trouble taking medicines the way you have been told to take them?: I always take medicine as prescribed How confident are you that you can control & manage most of your health problems?: not very confident What is your race?: White Activity of Daily Living Bathing - sponge bath, tub bath or shower: receives no assistance (gets in/out by self, if usual bathing means Dressing - getting clothes from closets & drawers, including inner/outer garments & fasteners.: gets clothes & gets completely dressed without help Transfer: moves in & out of bed and chair without help (may use support object) Continence: controls urination/bowel movements completely by self Feeding: feeds self without help Total Score: 0 Information obtained from: patient Using telephone: independent Traveling: dependent (Can not drive due to mental health issues.) Shopping: needs assistance Preparing meals: needs assistance Housework: needs assistance Taking medicine: needs assistance Managing money: needs assistance PHQ-9 Over the last 2 weeks, how often have you been bothered by any of the following problems? 1. Little interest or pleasure in doing things: nearly every day 2. Feeling down, depressed, or hopeless: more than half the days 3. Trouble falling or staying asleep, or sleeping too much: more than half the days 4. Feeling tired or having little energy: several days 5. Poor appetite or overeating: several days 6. Feeling bad about yourself - or that you are a failure or have let yourself or your family down: not at all 7. Trouble concentrating on things, such as reading the newspaper or watching television: several days 8. Moving or speaking so slowly that other people could have noticed. Or the opposite - being so fidgety or restless that you have been moving around a lot more than usual: nearly every day 9. Thoughts that you would be better off or of hurting yourself in some way: not at all Total score: 13 Depression Screening Interpretation: Positive Depression Screening Done: Yes Source: Developed by Drs. Gómez Molina, Sarai Sutton, Edwin Fermin and colleagues, with an educational sadie from [employer]. Thrive Questionnaire Date Thrive assessed: 08/25/24 I am a: Patient What is your living situation today?: I choose not to answer this question Within the past 12 months, did the food you bought not last and you didn't have the money to get more?: Often true Within the past 12 months, did you worry whether your food would run out before you got money to buy more?: Often true Do you have trouble paying for medicines?: No Do you have trouble getting transportation to medical appointments?: No Do you have trouble paying your heating and electricity bill?: No Do you have trouble taking care of your child, family member or friend?: No Do you have trouble with day-to-day activities such as bathing, preparing meals, shopping, managing finances, etc.?: No Are you currently unemployed and looking for a job?: No Are you interested in more education?: No Please select the resources that you would like help with: Transportation Currently or been in a relationship where the following occur: I choose not to answer THRIVE Score: 2 INOCENCIO-7 AMB Questionnaire INOCENCIO-7 Date INOCENCIO - 7 assessed: 05/19/24 Source: Developed by Drs. Gómez Molina, Sarai Sutton, Edwin Fermin and colleagues, with an educational sadie from [employer]. Physical Exam Vital Signs: Last Vital Signs Temp 97.1 F 02/16/25 09:16 Pulse 58 02/16/25 09:16 BP 110/64 02/16/25 09:16 Pulse Ox 100 02/16/25 09:16 Oxygen Delivery Method Room Air 02/16/25 09:16 BMI result Body Mass Index 25.0 Balance: Normal Romberg: Negative Tandem Walk: Able to Walk and Turn: Able to Rise from sit to stand: Able to Hearing Whisper test: Pass Assessment & Plan Assessment & Plan (1) Schizophrenia, unspecified: Code(s): F20.9 - Schizophrenia, unspecified Plan: Condition is stable. (2) Annual physical exam: Code(s): Z00.00 - Encounter for general adult medical examination without abnormal findings Plan: As above Medications: Refilled acetaminophen ER (Tylenol 8 Hour) 650 mg PO Q8H PRN 60 tabs 0RF fever or pain valacyclovir 1,000 mg PO TID 30 tabs 0RF 10 days B02.9 - Zoster without complications betamethasone dipropionate 0.05% Apply to lower legs twice a day 1 appl topical BID PRN 60 mL 1RF skin irritation 2 weeks R21 - Rash and other nonspecific skin eruption hydrocortisone 2.5% 1 appl topical BID PRN 20 grams 0RF skin irritation propranolol 20 mg PO TID 270 tabs 0RF Quality Reporting (2019) Depression/Bipolar (159/160/161/177) PHQ-9: Total score: 13 Coding Level of Care Code Medicare Subsequent (G0439) Diagnoses Schizophrenia, unspecified F20.9 Annual physical exam Z00.00 Advance Care Planning Who was present: Unable to have meaningful conversation regarding this. Patient is alone in the room and can not understand.
[2025-02-16 09:16] VITALS: BP 110/64; PULSE 58; TEMP 36.2; O2SAT 100; BMI 25.0
--- OUTSIDE RECORDS SUMMARY | 2025-02-16 09:53 | XMS_ITS | Patient Health Record ---
Author Organization [facility] Address [address] [place] [address] Care Team Providers Care Correctional Facility Nurse Name Role Phone Christiano Winslow Jr Reason For Referral No Information Plan Of Treatment No Information
--- OUTSIDE RECORDS SUMMARY | 2025-02-16 09:53 | XMS_ITS | Clinical Summary ---
Author Organization [facility] Address [address] [place] [address] Care Team Providers Care Band Reamer Machine Operator Name Role Phone Pcp, No Primary Care [...] Health Maintenance Due Date Last Done Comments Advance Care Planning 1950 Hepatitis C Virus Screening 1950 DTaP/Tdap/Td Vaccines (1 - Tdap) 1968 Colonoscopy 1994 Pneumococcal Vaccines 50+ (1 of 1 - PCV) 1999 Zoster (Shingles) Vaccine (1 of 2) 1999 RSV Vaccine 50 years and old er and Patients (1 - 1-dose 75+ series) 2024 Influenza Vaccine 11/18/2024 COVID-19 Vaccine ( - 2023-2 5 season) 2024 Hepatitis B Vaccines Aged Out No long er eligible based on patient's age to complete this topic Insurance * Guarantor: Amari Christianson Account Type Relation to Patient Date of Phone Billing Address Personal/Family Self 1950 49F [facility] [place] [address] MEDICARE PART A & B Advance Directives * Full Code (Latest Code Status on File) Date Activated Date Inactivated Comments 08/19/2020 12:51 AM Care Teams Band Reamer Machine Operator Relationship Specialty Start Date End Date Pcp, No PCP - General General Medicine 12/04/23
== END 2025-02-16 11:48 | disposition home or self-care (01) ==
LOC: HO.HMCH 08:53
PROVIDERS: PCP Internal Medicine; Visit Provider Internal Medicine
DX: Z00.00 Encounter for general adult medical examination without abnormal findings (principal); F20.9 Schizophrenia, unspecified

== ENCOUNTER 2025-03-14 10:49 | Outpatient (AMB) | payer MEDICARE, SELFPAY ==
--- NOTE | 2025-03-14 11:06 | A.OFFVIS_ITS ---
Vital Signs 03/14/25 11:15 Height 5 ft 11 in Weight 178 lb BMI 24.8 BP 117/67 Blood Pressure Location Lt brachial Position Sitting Pulse 85 Intake Visit Reasons: unilateral inguinial hernia Intake Note: Patient is seen in office for evaluation of a right inguinal hernia. Pt c/o: admits to lump on the right groin, reducible, pain with prolonged walking, onset since 08/12, admits to constipation and straining, bm every 2 to 3 days us pelvis:10/14/24 Qa Analyst Required: No Accompanied by: Other Relationship Allergies haloperidol (From HALDOL) Allergy (Unknown, Verified 03/14/25 11:14) BAD REACTION dizziness Medication List - Last Reconciled 03/14/25 by Vamshi Chamberlain MD acetaminophen ER (Tylenol 8 Hour) 650 mg PO Q8H PRN amlodipine 5 mg PO DAILY atorvastatin 10 mg PO BEDTIME benztropine 2 mg PO BID betamethasone dipropionate 0.05% 1 appl topical BID PRN 2 weeks cholecalciferol (vitamin D3) 25 mcg PO DAILY fluphenazine decanoate mg IM hydrocortisone 2.5% 1 appl topical BID PRN lorazepam 0.5 mg PO BID PRN multivitamin with folic acid 400 mcg (Tab-A-Javi) 1 tab PO DAILY propranolol 20 mg PO TID valacyclovir 1,000 mg PO TID 10 days HPI Comments Details: 74-year-old male patient presenting with complaints of a lump in the right groin. This has been present since July this year but he denies any inciting events. He does note the lump to increase in size when he is up walking and exercising. He lives in a shelter and normally does not need to do any extensive lifting. The lump does spontaneously reduce in size when in bed. He does report some pain when he is up walking which improves when he is back in bed. He denies any nausea, vomiting, fever or chills. He does report constipation which he feels predated the hernia. He also reports a previous left inguinal hernia repair approximately 15 years ago and denies any current symptoms on the left side. An ultrasound of the abdomen performed on 10/14/2024 confirmed a right inguinal hernia containing bowel. [facility] Medical History Right shoulder strain Essential hypertension Schizophrenia, unspecified Surgical History Hx of left inguinal hernia repair History of colonoscopy (~09/08/08) History of tooth extraction Family History Father CAD (coronary artery disease) Chronic mental illness Mental health disorder Mother No problems noted. Brother No problems noted. Social History Housing: House Alcohol intake: never Patient Tobacco Use Status: Former Tobacco user e-Cigarette/Vaping Use: Never Used Second Hand Smoke Exposure: Yes service: No Current occupational status: disabled Cognitive needs: No Hearing needs: No Vision needs: Yes (Glasses) Review of Systems Const All systems reviewed & are unremarkable except as noted in HPI and below Physical Exam Vital Signs: Last Vital Signs Pulse 85 03/14/25 11:15 BP 117/67 03/14/25 11:15 BMI result Body Mass Index 24.8 Const General: cooperative and no acute distress Nutritional Appearance: well nourished Orientation/consciousness: patient oriented x3 Limitations: no limitations HEENT Head: Yes normocephalic and Yes atraumatic Ears: hearing grossly normal bilaterally Resp Effort & Inspection: normal respiratory effort, no audible wheezes, no cough and no respiratory distress Cardio Jugular venous distension: no JVD GI Inspection: Yes normal to inspection Palpation (GI): Soft to palpation, nontender, no guarding, not rigid and Hernia present (Reducible) direct inguinal on the right Skin Other: Warm, dry, no rash Neuro General: patient oriented x3 Extrem General: Yes no clubbing, cyanosis or edema Assessment & Plan Assessment & Plan (1) Reducible right inguinal hernia: Code(s): K40.90 - Unilateral inguinal hernia, without obstruction or gangrene, not specified as recurrent Category: Medical Plan 74-year-old male patient presenting with a lump in the right groin which has been present since July 2024 and seems to cause discomfort and ambulating. On examination the patient is found to have a reducible right inguinal hernia with minimal discomfort with palpation. No hernia is identified in the left side following his previous repair. I recommended repair of the right inguinal hernia with mesh and after discussion of the procedure, risks, and alternatives, he consents to the surgery. This will be scheduled as a short-stay surgery at his earliest convenience. Coding Level of Care Code New Pt Level 4 (97588) Diagnoses Reducible right inguinal hernia K40.90
[2025-03-14 11:15] VITALS: BP 117/67; PULSE 85; BMI 24.8
--- OUTSIDE RECORDS SUMMARY | 2025-03-14 14:03 | XMS_ITS | Patient Health Record ---
Author Organization [facility] Address [address] [place] [address] Care Team Providers Care Over The Horizon Targeting Supervisor Name Role Phone Christiano Winslow Jr [phone] Reason For Referral No Information Plan Of Treatment No Information
--- OUTSIDE RECORDS SUMMARY | 2025-03-14 14:03 | XMS_ITS | Clinical Summary ---
Author Organization [facility] Address [address] [place] [address] Care Team Providers Care Video Game Creator Name Role Phone Pcp, No Primary Care [...] Inactivated Comments 08/19/2020 12:51 AM Care Teams Video Game Creator Relationship Specialty Start Date End Date Pcp, No PCP - General General Medicine 12/04/23
== END 2025-03-14 11:25 | disposition home or self-care (01) ==
LOC: HO.HGS 10:50
PROVIDERS: PCP Internal Medicine; Visit Provider Surgery
DX: K40.90 Unilateral inguinal hernia, without obstruction or gangrene, not specified as recurrent (principal)
CPT/HCPCS: 99204

== ENCOUNTER → 2025-03-14 10:49 | Outpatient (BNVA) | payer MEDICARE, SELFPAY | PROVIDERS: PCP Internal Medicine; Visit Provider Surgery | DX: K40.90 Unilateral inguinal hernia, without obstruction or gangrene, not specified as recurrent (principal) | CPT/HCPCS: 99202 ==

== ENCOUNTER 2025-04-19 06:44 | Day surgery (SDC) | payer MEDICARE, SELFPAY ==
--- OUTSIDE RECORDS SUMMARY | 2025-03-29 21:21 | XMS_ITS | Clinical Summary ---
Author Organization [facility] Address [address] [place] [address] Care Team Providers Care Spindle Repairer Name Role Phone Pcp, No Primary [...] series) 2024 Influenza Vaccine 11/18/2024 COVID-19 Vaccine (1 - 2024-2 6 season) 2024 Hepatitis B Vaccines Aged Out No long er eligible based on patient's age to complete this topic Insurance MEDICARE PART A & B Advance Directives * Full Code (Latest Code Status on File) Date Activated Date Inactivated Comments 08/19/2020 12:51 AM Care Teams Spindle Repairer Relationship Specialty Start Date End Date Pcp, No PCP - General General Medicine 12/04/23
--- OUTSIDE RECORDS SUMMARY | 2025-03-29 21:21 | XMS_ITS | Patient Health Record ---
Author Organization [facility] Address [address] [place] [address] Care Team Providers Care Miner Assistant Name Role Phone Christiano Winslow Jr Reason For Referral No Information Plan Of Treatment No Information
--- NOTE | 2025-04-12 11:03 | HO.ANESPROP2 ---
Documented by User: Merlyn Moise NP 04/12/25 11:04 HPI - Anesthesia Eval Consult details Narrative: 75yo M for Right Repair Hernia Inguinal Reducible with mesh PMFSH Active Problems Active Problems: All Active Problems Reducible right inguinal hernia (Acute) Colonoscopy refused (Acute) Adult general medical exam (Acute) Screening for diabetes mellitus (Acute) Screening for hyperlipidemia (Acute) Screening for prostate cancer (Acute) Essential hypertension (Acute) Schizophrenia, unspecified (Acute) Past Medical History Medical History Arthritis Elevated cholesterol Right shoulder strain Essential hypertension Schizophrenia, unspecified Family History Family History Father CAD (coronary artery disease) Chronic mental illness Mental health disorder Mother No problems noted. Brother No problems noted. Surgical History Surgical History Hx of left inguinal hernia repair History of colonoscopy (~09/08/08) History of tooth extraction Social History Social History Housing: House Alcohol intake: never Patient Tobacco Use Status: Former Tobacco user e-Cigarette/Vaping Use: Never Used Second Hand Smoke Exposure: Yes Use of substances other than those prescribed or required for medical reasons: No Are you DNR?: No Advance Directives: No Advance Directives Information Provided: Yes service: No Current occupational status: disabled Cognitive needs: No Hearing needs: No Vision needs: Yes (Glasses) Meds Allergies Allergy/AdvReac Type Severity Reaction Status Date / Time haloperidol (From HALDOL) Allergy Unknown BAD Verified 04/19/25 07:14 REACTION dizziness Home Medications ?Medication ?Instructions ?Recorded ?Confirmed ?Last Taken ?Type benztropine 2 mg tablet 2 mg PO BID 11/12/20 04/19/25 Unknown History fluphenazine decanoate 25 mg/mL 10 mg IM Q2W 11/12/20 04/19/25 Unknown History injection solution lorazepam 0.5 mg tablet 0.5 mg PO BID PRN Anxiety 11/12/20 04/19/25 Unknown History Assessment and Plan Assessment Anesthesia Assessment: Chart Reviewed Documented by User: Jessica Oliver MD 04/19/25 09:46 PMFSH Past Medical History Medical History Arthritis Elevated cholesterol Right shoulder strain Essential hypertension Schizophrenia, unspecified Family History Family History Father CAD (coronary artery disease) Chronic mental illness Mental health disorder Mother No problems noted. Brother No problems noted. Family history of problems with anesthesia: No Surgical History Surgical History Hx of left inguinal hernia repair History of colonoscopy (~09/08/08) History of tooth extraction History of Problems with Anesthesia: No Social History Social History Housing: House Alcohol intake: never Patient Tobacco Use Status: Former Tobacco user e-Cigarette/Vaping Use: Never Used Second Hand Smoke Exposure: Yes Use of substances other than those prescribed or required for medical reasons: No Are you DNR?: No Advance Directives: No Advance Directives Information Provided: Yes service: No Current occupational status: disabled Cognitive needs: No Hearing needs: No Vision needs: Yes (Glasses) Meds Allergies Allergy/AdvReac Type Severity Reaction Status Date / Time haloperidol (From HALDOL) Allergy Unknown BAD Verified 04/19/25 07:14 REACTION dizziness Home Medications ?Medication ?Instructions ?Recorded ?Confirmed ?Last Taken ?Type benztropine 2 mg tablet 2 mg PO BID 11/12/20 04/19/25 Unknown History fluphenazine decanoate 25 mg/mL 10 mg IM Q2W 11/12/20 04/19/25 Unknown History injection solution lorazepam 0.5 mg tablet 0.5 mg PO BID PRN Anxiety 11/12/20 04/19/25 Unknown History Exam Airway Mallampati Class: Patient Non-Cooperative TM Dist: >3cm Neck ROM: Limited Heart: rrr Lungs: cta Assessment and Plan Assessment Anesthesia Assessment: Anesthesia Plan Discussed Final Anesthetic Review Family History of Problems with Anesthesia: No History of Problems with Anesthesia: No NPO: Yes ASA Class: III Final Preanesthetic Review: No Changes in Pt Med Stat, Meds/Allgs Chart Reviewed, Consent Obtained/Reviewed and Anes Risks/Benef Reviewed Patient Risk: Intermediate Procedure Risk: Low Anesthetic Plan Anesthetic Plan: GA and Agree w/ Assess. and Plan Disposition: Standard PACU
[2025-04-17 08:16] VITALS: BMI 24.8
[2025-04-19 07:33] VITALS: BMI 23.4
[2025-04-19 07:54] VITALS: BP 131/69; PULSE 59; RESP 15; TEMP 36.3; O2SAT 99
[2025-04-19] MEDS: Lactated Ringers 1,000 ML 100 ML IVCONT (07:58)
--- NOTE | 2025-04-19 08:22 | MHC.SHP ---
Pre-Procedural Eval Section A - 24 Hr Update-Section A only Date of Service: 04/19/25 The patient is an INPATIENT: No Changes since office visit: Yes Patient answered all questions; No Cold of Flu in the past 2 weeks, No New Medical Problems and No Changes in Medication The patient has been examined within 24 hours of the surgical procedure. The History & Physical has been completed within 30 days and I have reviewed it.: No Section B - Complete if H&P > 30 days Chief Complaint: Unilateral inguinal hernia, without obstruction Details of Present Illness: Patient denies any pain or other symptoms associated with the hernia Relevant Family History (Specify if Yes): No Relevant Social History: None Present Medications: see Short Stay Collaborative assessment Medical History: No relevant PMH History of Previous Operations: No relevant previous surgery Allergies: Allergies Allergy/AdvReac Type Severity Reaction Status Date / Time haloperidol (From HALDOL) Allergy Unknown BAD Verified 04/19/25 07:14 REACTION dizziness Review of Systems Sugical H&P ROS: Negative: Constitution, Cardiovascular, Respiratory, Neurological, Psychiatric, Hem-Onc, Allergic/Immunologic, Gastrointestinal, Genitourinary, Musculoskeletal and Integumentary Exam Surgical H&P Exam: Normal: HEENT, Normal: Heart, Normal: Lungs, Normal: Extremities, Normal: Abdomen and Normal: Skin Plan Diagnosis/Plan: Unchanged I have reviewed the history and physical and performed a pertinent physical examination on my patient. No changes have occurred unless specified. I reviewed the procedure, risks and alternatives in detail with the patient and with his guardian Fabi by telephone and consent obtained for surgery. Time Spent With Patient Time: Total time managing care of this patient today ____ minutes.
--- NOTE | 2025-04-19 10:41 | P.OP_ITS ---
Operative Note Operative Note Date of Service: 04/19/25 Narrative: Preoperative diagnosis: Right inguinal hernia, reducible Postoperative diagnosis: Same Procedure: Repair of reducible right inguinal hernia with mesh Surgeon: Vamshi Chamberlain MD Salicylic Acid Blender: Kimi Duarte PA-C Anesthesia: General LMA Indications for procedure: 75-year-old male patient presenting with a lump in the right groin which increases with lifting and straining but reduces with light pressure. On examination the patient was found to have a reducible lump which increases in size with Valsalva maneuvers. Operative findings: Patient found to have a indirect right inguinal hernia without a sac. Specimen: None Estimated blood loss: Less than 2 mL Complications: None Procedure details: Patient was brought to the OR and placed in a supine position. After administering general anesthesia the patient's abdomen was prepped with ChloraPrep and draped in a sterile fashion. A surgical time-out was called the consent confirmed. Patient received preoperative antibiotics and Venodyne boots were in place. Local anesthesia consisting of 0.5% Sensorcaine with epinephrine was infiltrated over the right inguinal ligament. An incision was made with a scalpel carried down through subcutaneous tissue, past Tami's fashion up to the external oblique aponeurosis. Additional local was infiltrated below the aponeurosis. This was then incised with a scalpel widened with the Metzenbaum scissors. Spermatic cord was then dissected free from the surrounding inguinal canal and retracted using a [place] drain. The floor of the inguinal canal was found to be intact however there was a wide internal ring. Fibers of the cremaster muscle were and no sac identified. The internal ring was then further dissected into the preperitoneal space using an open Ray-Royal sponge. A large PHS mesh was then obtained and the circular underlay deployed within the preperitoneal space. The overlay was then secured to the pubic tubercle, conjoined tendon, and shelving edge of the inguinal ligament using a 0 Polysorb suture. A slit was made in the mesh in the mesh wrapped around the spermatic cord at the internal ring. This was secured to the shelving edge using the 0 Polysorb suture. This was tight enough to allow only the tip of the index finger to pass. The remainder of the mesh was placed below the external oblique aponeurosis laterally. Wounds were then irrigated with saline solution and suctioned dry. Wounds were checked for hemostasis. External oblique aponeurosis was then closed using a running 2-0 Polysorb suture. Approximately 8 mL of Zenrelef was then instilled below the external oblique aponeurosis for postoperative pain control. Tami's fascia and dermis were then reapproximated using interrupted 3-0 Polysorb sutures. Skin was closed using a running subcuticular 4-0 Polysorb suture. Sterile dressings consisting of Steri-Strips, 4 x 4 gauze and Tegaderm were then applied. The patient tolerated the procedure well. Sponge, instrument, and needle counts reported as correct. The patient was transferred to PACU in stable condition.
[2025-04-19 10:48] VITALS: BP 117/68; PULSE 65; RESP 20; TEMP 36.4; O2SAT 100
[2025-04-19 10:50] VITALS: BP 113/63; PULSE 63; RESP 16; O2SAT 100
[2025-04-19 10:55] VITALS: BP 116/74; PULSE 72; RESP 16; O2SAT 97
[2025-04-19 10:59] VITALS: BP 119/69; PULSE 65; RESP 16; TEMP 36.4; O2SAT 97
--- NOTE | 2025-04-19 11:38 | PC.NURSE ---
THIS RN CALLED ALLISONRAMONA AVELAR (patient's legal guardian) AT TIME OF DISCHARGE TO GET PERMISSION TO HAVE DOCUMENTS SIGNED. THIS RN ALSO CALLED [facility]S [facility] AND SPOKE WITH CRUZ TO GIVEN DISCHARGE INSTRUCTIONS. PATIENT ALSO GOING HOME WITH WRITTEN DISCHARGE INSTRUCTIONS.
== END 2025-04-19 12:28 | disposition home or self-care (01) ==
PROVIDERS: PCP Internal Medicine; Visit Provider Surgery
PROC: (CPT 49505; principal; 2025-04-19 10:20)
DX: K40.90 Unilateral inguinal hernia, without obstruction or gangrene, not specified as recurrent (principal); K59.00 Constipation, unspecified; I10 Essential (primary) hypertension; F20.9 Schizophrenia, unspecified; Z79.899 Other long term (current) drug therapy; Z88.8 Allergy status to other drugs, medicaments and biological substances; Z98.890 Other specified postprocedural states; Z87.891 Personal history of nicotine dependence
CPT/HCPCS: 49505; C1781; J0668; J0690; J1100; J2003; J2405; J2704; J3010

== ENCOUNTER → 2025-04-19 06:44 | Outpatient (BNV) | payer MEDICARE, SELFPAY | PROVIDERS: PCP Internal Medicine; Visit Provider Surgery | DX: K40.90 Unilateral inguinal hernia, without obstruction or gangrene, not specified as recurrent (principal) | CPT/HCPCS: 49505 ==